=== PATIENT | female | born 1955 | race African-American/Black ===

== ENCOUNTER 2023-03-06 11:02 | Inpatient (IN) | payer MEDICARE, SELFPAY ==
[~2023-03-06 11:02] MED LIST: Iopamidol-370 76% 500 ML MDV (1 ML CHARGE) ONE
[2023-03-06] MEDS ORDERED: KETAMINE 100 MG/ML (5ML VIAL) ONE (11:21)
[2023-03-06] MEDS ORDERED: Ketamine 500 mg/500 ml in NS IVPB SCH (11:45)
[2023-03-06 11:47] LABS: ALV-art Gradient 222.025 mmHg (0-20); Actual Bicarbonate (HCO3a) 23.1 mEq/L (22-28); Analyzer IN Cardio ER; Base Excess (BEa) -0.7 mEq/L (-2.0 to +3.0); CO2 Tension 35.5 mmHg (35.0-45.0); Calcium, Ionized (arterial) 1.21 mmol/L (1.12-1.30); Carboxyhemoglobin (COHb) 0.3 gm% (0.0-3.0); Hematocrit-ABG 39 % (36.0-47.0); Hemoglobin (Hb) 13.1 g/dL (12.0-16.0); O2 Tension (PaO2), arterial 90.1 mmHg (> 80.0); Potassium - ABG Lab 4.43 mmol/L (3.70-5.30); Puncture Site RBA; pH, Arterial 7.431 (7.35-7.45)
[2023-03-06] MEDS ORDERED: NOREPINEPHRINE 8 MG/250 ML-D5W 250 ML ONE (11:55)
[2023-03-06] MEDS ORDERED: Piperacillin/Tazobactam 4.5 GM VIAL ONE (11:57)
[2023-03-06] MEDS ORDERED: Sodium Chloride 0.9% 100 ML ONE (11:58)
[2023-03-06] MEDS ORDERED: Acetaminophen 650 MG Suppository ONE (12:02)
[2023-03-06 12:10] LABS: #Monocytes 0.5 thou/uL (0.11-0.59); #Neutrophils 9.6 thou/uL (1.40-6.50); %Basophils 0.3 % (0.0-1.0); %Eosinophils 0.1 % (0.0-10.0); %Lymphocytes 13.4 % (21.0-51.0); %Monocytes 4.6 % (0.0-10.0); %Neutrophils 81.2 % (42.0-75.0); Hematocrit 41.2 % (36.0-47.0); Hemoglobin 12.6 g/dL (12.0-16.0); Mean Corpuscular HGB CONC 30.6 g/dL (32.0-36.0); Mean Corpuscular Hemoglobin 27.1 pg (27.0-31.0); Mean Corpuscular Volume 88.6 fl (78.0-98.0); Mean Platelet Volume 12.1 fL (7.4-10.4); Platelet Count 267 10x3/uL (130-400); RBC Distribution Width 17.6 % (11.5-14.5); Red Blood Cell (RBC) Count 4.65 mill/uL (4.20-5.40); White Blood Cell (WBC) Count 11.8 10x3/uL (4.8-10.8)
[2023-03-06 12:39] LABS: Bilirubin Negative (Negative); Blood, Urine Negative (Negative); CAUTI Indications for Culture Alt mental st,lethar; Glucose, Urine (Dipstick) 50 mg/dL (Negative); Ketone, Urine Trace mg/dL (Negative); Leukocyte 75 Leu/uL (Negative); Nitrite Negative (Negative); Protein, Urine (Dipstick) 70 mg/dL (Neg-Trace); Specific Gravity, Urine 1.026 (1.002-1.036); Squamous Epithelial 0-3 HPF (0-3); Urobilinogen Normal mg/dL (Less than 2)
[2023-03-06 12:40] LABS: ALT (SGPT) 86 U/L (8-55); AST (SGOT) 79 U/L (5-34); Albumin 3.8 g/dL (3.4-4.8); Alkaline Phosphatase 86 U/L (40-110); Anion Gap 23 mmol/L (10-20); BUN (Urea Nitrogen) 61 mg/dL (9.8-20.1); Bilirubin, Total 0.6 mg/dL (0.2-1.2); Calc. Creatinine Clearance 0 mL/min (70-130); Calcium 10.1 mg/dL (7.8-10.44); Carbon Dioxide 23 mmol/L (23-31); Chloride 101 mmol/L (98-107); Estimated GFR 19; Globulin 3.6 g/dL (2.4-3.5); Lipase 26 U/L (8-78); Magnesium 2.7 mg/dL (1.6-2.6); Potassium 4.7 mmol/L (3.5-5.1); Protein, Total 7.4 g/dL (5.8-8.1); Sodium 142 mmol/L (136-145)
[2023-03-06 12:49] LABS: Glucose 595 mg/dL (80-115); Troponin I 0.818 ng/mL (< 0.028)
[2023-03-06 12:55] LABS: RBC/HPF 0-3 HPF (0-3)
[2023-03-06 12:56] LABS: Bacteria/HPF Rare-Few HPF (None Seen); Clarity Cloudy (Clear)
[2023-03-06 12:57] LABS: Urine Culture Reflex No No
[2023-03-06] MEDS ORDERED: Vancomycin (BATCH) 2 GM/500 ML BAG ONE (13:01)
[2023-03-06] MEDS ORDERED: Insulin Regular 300 UNITS/3 ML VIAL ONE (13:12)
[2023-03-06] MEDS ORDERED: Dextrose 50% Abboject 50 ML SYRINGE SLOW IVP PRN ×2 (14:46)
[2023-03-06] MEDS ORDERED: NS 0.9% w/ 20 MEQ KCL 1,000 ML IV PRN ×2 (14:46)
[2023-03-06] MEDS ORDERED: D5 1/2 NS w/20 mEq KCL 1,000 ML IV PRN (14:46)
[2023-03-06] MEDS ORDERED: Electrolyte Replacement Protocol 1 EACH IVPB ONE ×2 (14:46)
[2023-03-06] MEDS ORDERED: Dextrose 5% in Water 1,000 ML IV PRN (14:46)
[2023-03-06] MEDS ORDERED: Ondansetron PF 4 MG/2 ML Vial IVP PRN (14:46)
[2023-03-06] MEDS ORDERED: Sodium Chloride 0.9% 1,000 ML IV PRN ×4 (14:46)
[2023-03-06] MEDS ORDERED: Glucagon 1 MG/ML KIT IM PRN (14:46)
[2023-03-06] MEDS ORDERED: Acetaminophen 650 MG Suppository PR PRN (14:46)
[2023-03-06] MEDS ORDERED: Dextrose 5 %-0.45 % NaCl 1,000 ML IV PRN (14:46)
[2023-03-06] MEDS ORDERED: HUMULIN R 100 UNITS in Sodium Chloride 0.9% 100 ML IVPB SCH (15:00)
[2023-03-06] MEDS ORDERED: Ventilator Sedation Protocol 1 EACH FS SCH (15:00)
[2023-03-06 15:55] LABS: Lactic Acid 3.4 mmol/L (0.5-2.2)
[2023-03-06 15:58] LABS: Anion Gap 17 mmol/L (10-20); BUN (Urea Nitrogen) 65 mg/dL (9.8-20.1); Calc. Creatinine Clearance 0 mL/min (70-130); Calcium 9.4 mg/dL (7.8-10.44); Carbon Dioxide 23 mmol/L (23-31); Chloride 106 mmol/L (98-107); Estimated GFR 18; Potassium 3.9 mmol/L (3.5-5.1); Sodium 142 mmol/L (136-145)
[2023-03-06] MEDS ORDERED: Morphine 2 MG/ML VIAL SLOW IVP PRN (16:00)
[2023-03-06] MEDS ORDERED: Propofol BOLUS 1,000 MG/100 ML VIAL IV PRN (16:00)
[2023-03-06] MEDS ORDERED: Fentanyl BOLUS 250 ML IVPB PRN (16:00)
[2023-03-06] MEDS ORDERED: Fentanyl CADD 100 ML IV SCH (16:00)
[2023-03-06] MEDS ORDERED: DISCONTINUE PREVIOUS NARCOTIC PAIN MEDICATIONS AND BENZODIAZEPINES FS SCH (16:00)
[2023-03-06 16:02] LABS: Glucose 446 mg/dL (80-115)
[2023-03-06] MEDS ORDERED: INSULIN REGULAR IN 0.9 % NACL 100 UNITS/100 ML BAG ONE (16:11)
[2023-03-06 16:13] LABS: Troponin I 1.306 ng/mL (< 0.028)
[2023-03-06] MEDS ORDERED: Vancomycin Dose by Levels Sliding Scale (Wt > 99) FS SCH (17:30)
[2023-03-06] MEDS ORDERED: Piperacillin/Tazobactam 4.5 GM in Sodium Chloride 0.9% 100 ML IVPB SCH (18:00)
[2023-03-06] MEDS: Heparin 5,000 UNITS/ML VIAL SC SCH ×2 (18:22→20:29)
[2023-03-06] MEDS: Piperacillin/Tazobactam 3.375 GM in Sodium Chloride 0.9% 100 ML IVPB SCH (18:23)
[2023-03-06] MEDS ORDERED: Lactated Ringer's 1,000 ML IV SCH (18:45)
[2023-03-06 18:58] LABS: Anion Gap 20 mmol/L (10-20); BUN (Urea Nitrogen) 63 mg/dL (9.8-20.1); Calc. Creatinine Clearance 44 mL/min (70-130); Calcium 9.1 mg/dL (7.8-10.44); Carbon Dioxide 22 mmol/L (23-31); Chloride 105 mmol/L (98-107); Estimated GFR 21; Potassium 3.6 mmol/L (3.5-5.1); Sodium 143 mmol/L (136-145)
[2023-03-06] MEDS ORDERED: Piperacillin/Tazobactam 3.375 GM in Sodium Chloride 0.9% 100 ML IVPB SCH (19:00)
[2023-03-06 19:02] LABS: Glucose 487 mg/dL (80-115); Troponin I 1.527 ng/mL (< 0.028)
[2023-03-06] MEDS ORDERED: Vancomycin 1.5 GM in Sodium Chloride 0.9% 250 ML 300 ML IVPB SCH (21:00)
[2023-03-06] MEDS: NOREPINEPHRINE 8 MG/250 ML-D5W 250 ML IVPB PRN (22:16)
[2023-03-06] MEDS: Propofol 1,000 MG/100 ML VIAL IV PRN (22:18)
[2023-03-06 23:59] LABS: Lactic Acid 3.2 mmol/L (0.5-2.2)
[2023-03-07 00:01] LABS: Anion Gap 14 mmol/L (10-20); BUN (Urea Nitrogen) 52 mg/dL (9.8-20.1); Calc. Creatinine Clearance 55 mL/min (70-130); Calcium 8.9 mg/dL (7.8-10.44); Carbon Dioxide 22 mmol/L (23-31); Chloride 113 mmol/L (98-107); Estimated GFR 28; Glucose 149 mg/dL (80-115); Potassium 3.2 mmol/L (3.5-5.1); Sodium 146 mmol/L (136-145)
[2023-03-07 00:18] LABS: Troponin I 1.815 ng/mL (< 0.028)
[2023-03-07] MEDS ORDERED: Heparin 10,000 UNITS/ 10 ML VIAL SLOW IVP SCH (00:30)
[2023-03-07] MEDS ORDERED: Heparin 25,000 units/D5W 500 ML IVPB SCH (00:30)
[2023-03-07 01:00] LABS: Hematocrit 35.6 % (36.0-47.0); Hemoglobin 11.2 g/dL (12.0-16.0); Platelet Count 212 10x3/uL (130-400)
[2023-03-07] MEDS ORDERED: Electrolyte Replacement Protocol FS PRN (01:45)
[2023-03-07] MEDS ORDERED: Insulin Glargine 30 UNITS/0.3 ML VIAL SC SCH ×2 (02:15→17:00)
[2023-03-07] MEDS: Piperacillin/Tazobactam 3.375 GM in Sodium Chloride 0.9% 100 ML IVPB SCH ×3 (02:31→17:45)
[2023-03-07] MEDS: Potassium Chloride 20 MEQ in Premix 1 BAG IVPB SCH ×2 (02:32→04:20)
[2023-03-07 04:57] LABS: Hematocrit 34.6 % (36.0-47.0); Hemoglobin 10.8 g/dL (12.0-16.0); Mean Corpuscular HGB CONC 31.2 g/dL (32.0-36.0); Mean Corpuscular Hemoglobin 27.4 pg (27.0-31.0); Mean Corpuscular Volume 87.8 fl (78.0-98.0); Mean Platelet Volume 12.2 fL (7.4-10.4); Platelet Count 183 10x3/uL (130-400); RBC Distribution Width 17.7 % (11.5-14.5); Red Blood Cell (RBC) Count 3.94 mill/uL (4.20-5.40); White Blood Cell (WBC) Count 14.2 10x3/uL (4.8-10.8)
[2023-03-07 05:13] LABS: Delete Auto Diff?? YES; Manual Diff?? YES
[2023-03-07 05:17] LABS: Anion Gap 15 mmol/L (10-20); BUN (Urea Nitrogen) 45 mg/dL (9.8-20.1); Calc. Creatinine Clearance 65 mL/min (70-130); Calcium 8.6 mg/dL (7.8-10.44); Carbon Dioxide 21 mmol/L (23-31); Chloride 112 mmol/L (98-107); Estimated GFR 32; Glucose 213 mg/dL (80-115); Potassium 3.8 mmol/L (3.5-5.1); Sodium 144 mmol/L (136-145)
[2023-03-07 05:44] LABS: Band 23 % (5-11); Lymphocytes 8 % (21-51); Metamyelocyte 2 % (0-0); Monocytes 6 % (0-10); Neutrophil 61 % (42-75); Total Cell Count 100
[2023-03-07 05:45] LABS: CellaVision Operator ID LAB.CLH1; Hypochromia SLIGHT = 6-15 cells HPF (0-5); Platelet Adequacy Comment Platelets Normal; Polychromasia SLIGHT = 2-3 cells HPF (0-2)
[2023-03-07] MEDS: NOREPINEPHRINE 8 MG/250 ML-D5W 250 ML IVPB PRN ×2 (05:50→17:45)
[2023-03-07] MEDS: Propofol 1,000 MG/100 ML VIAL IV PRN (05:53)
[2023-03-07 07:05] LABS: Actual Bicarbonate (HCO3v) 21.2 mEq/L (22-28); Base Excess -2.7 mEq/L (-2.0 to +3.0); Calcium, Ionized (venous) 1.21 mmol/L (1.16-1.32); Chloride (VBG) 109 mmol/L (98-106); Hematocrit-VBG 36 % (36.0-47.0); Hemoglobin (Hb) 12.3 g/dL (11.7-16.1); Potassium (VBG) 3.89 mmol/L (3.70-5.30); Sodium 144 mmol/L (133-146); pH (venous) 7.415 (7.32-7.43)
[2023-03-07 08:26] LABS: Anion Gap 16 mmol/L (10-20); BUN (Urea Nitrogen) 43 mg/dL (9.8-20.1); Calc. Creatinine Clearance 62 mL/min (70-130); Calcium 8.6 mg/dL (7.8-10.44); Carbon Dioxide 21 mmol/L (23-31); Chloride 111 mmol/L (98-107); Estimated GFR 31; Glucose 251 mg/dL (80-115); Sodium 144 mmol/L (136-145)
[2023-03-07] MEDS: HumaLOG 300 UNITS/3 ML VIAL SC PRN ×4 (08:27→20:22)
[2023-03-07] MEDS: Pantoprazole 40 MG VIAL IVP SCH (09:23)
[2023-03-07] MEDS ORDERED: Acetaminophen 325 MG TAB PO PRN (09:54)
[2023-03-07] MEDS ORDERED: Acetaminophen 325 MG TAB PER TUBE PRN (09:59)
[2023-03-07] MEDS: Sodium Chloride 0.9% 1,000 ML IV SCH ×2 (10:36→20:15)
[2023-03-07] MEDS ORDERED: Acetaminophen 650 MG/20.3 ML UDCUP PER TUBE PRN (11:45)
[2023-03-07] MEDS: Heparin 5,000 UNITS/ML VIAL SC SCH (11:49)
[2023-03-07 13:31] LABS: Lactic Acid 2.4 mmol/L (0.5-2.2)
[2023-03-07 13:34] LABS: Vancomycin, Random 12.8 ug/mL (See Comment)
[2023-03-07] MEDS ORDERED: Vancomycin (BATCH) 1.25 GM in Premix 1 BAG IVPB SCH (14:00)
[2023-03-08] MEDS: HumaLOG 300 UNITS/3 ML VIAL SC PRN ×6 (00:16→21:14)
[2023-03-08] MEDS: Piperacillin/Tazobactam 3.375 GM in Sodium Chloride 0.9% 100 ML IVPB SCH ×3 (01:33→17:58)
[2023-03-08] MEDS: Sodium Chloride 0.9% 1,000 ML IV SCH ×2 (04:18→16:38)
[2023-03-08 04:24] LABS: Hematocrit 30.1 % (36.0-47.0); Hemoglobin 9.3 g/dL (12.0-16.0); Mean Corpuscular HGB CONC 30.9 g/dL (32.0-36.0); Mean Corpuscular Hemoglobin 27.1 pg (27.0-31.0); Mean Corpuscular Volume 87.8 fl (78.0-98.0); Platelet Count 144 10x3/uL (130-400); RBC Distribution Width 18.5 % (11.5-14.5); Red Blood Cell (RBC) Count 3.43 mill/uL (4.20-5.40); White Blood Cell (WBC) Count 15.6 10x3/uL (4.8-10.8)
[2023-03-08 04:52] LABS: Lactic Acid 1.6 mmol/L (0.5-2.2)
[2023-03-08 04:58] LABS: ALT (SGPT) 46 U/L (8-55); AST (SGOT) 25 U/L (5-34); Albumin 2.8 g/dL (3.4-4.8); Alkaline Phosphatase 61 U/L (40-110); Anion Gap 14 mmol/L (10-20); BUN (Urea Nitrogen) 35 mg/dL (9.8-20.1); Bilirubin, Total 0.7 mg/dL (0.2-1.2); Calc. Creatinine Clearance 78 mL/min (70-130); Calcium 8.6 mg/dL (7.8-10.44); Carbon Dioxide 21 mmol/L (23-31); Chloride 112 mmol/L (98-107); Estimated GFR 40; Glucose 376 mg/dL (80-115); Potassium 3.4 mmol/L (3.5-5.1); Protein, Total 5.8 g/dL (5.8-8.1); Sodium 144 mmol/L (136-145)
[2023-03-08 05:21] LABS: Delete Auto Diff?? YES; Manual Diff?? YES
[2023-03-08 07:21] LABS: Actual Bicarbonate (HCO3a) 21.1 mEq/L (22-28); Base Excess (BEa) -2.3 mEq/L (-2.0 to +3.0); CO2 Tension 31.4 mmHg (35.0-45.0); Calcium, Ionized (arterial) 1.24 mmol/L (1.12-1.30); Carboxyhemoglobin (COHb) 0.3 gm% (0.0-3.0); Hematocrit-ABG 30 % (36.0-47.0); Hemoglobin (Hb) 10.1 g/dL (12.0-16.0); O2 Tension (PaO2), arterial 99.9 mmHg (> 80.0); Potassium - ABG Lab 3.36 mmol/L (3.70-5.30); pH, Arterial 7.446 (7.35-7.45)
[2023-03-08 07:35] LABS: Puncture Site RRA
[2023-03-08 07:58] LABS: Band 13 % (5-11); Burr Cells SLIGHT = 2-5 cells HPF (0-1); CellaVision Operator ID LAB.GE; Giant Platelets 1.9 % (0-5); Large Platelets 0.9 % (0-5); Lymphocytes 11 % (21-51); Monocytes 2 % (0-10); Neutrophil 70 % (42-75); Platelet Adequacy Comment Platelets Normal; Poikilocytosis MODERATE=16-30 cells HPF (0-5); Polychromasia SLIGHT = 2-3 cells HPF (0-2); Reactive Lymphocytes 2 % (0-10); Total Cell Count 106
[2023-03-08] MEDS: Potassium Chloride 20 MEQ in Premix 1 BAG IVPB SCH ×4 (08:28→23:05)
[2023-03-08] MEDS: Insulin Glargine 30 UNITS/0.3 ML VIAL SC SCH (08:31)
[2023-03-08] MEDS: Pantoprazole 40 MG VIAL IVP SCH (08:31)
[2023-03-08] MEDS ORDERED: Clopidogrel Bisulfate 75 MG TAB PER TUBE SCH (09:00)
[2023-03-08] MEDS ORDERED: Aspirin Chewable 81 MG TAB PER TUBE SCH (09:00)
[2023-03-08] MEDS ORDERED: Insulin Glargine 30 UNITS/0.3 ML VIAL SC SCH ×2 (09:00)
[2023-03-08 13:11] LABS: Vancomycin, Random 10.6 ug/mL (See Comment)
[2023-03-08] MEDS: Vancomycin HCl 750 MG in Sodium Chloride 0.9% 250 ML 250 ML IVPB SCH (16:41)
[2023-03-08 16:50] LABS: Potassium 3.3 mmol/L (3.5-5.1)
[2023-03-08] MEDS: Propofol 1,000 MG/100 ML VIAL IV PRN (22:29)
[2023-03-09] MEDS: HumaLOG 300 UNITS/3 ML VIAL SC PRN ×5 (00:20→20:20)
[2023-03-09] MEDS: Piperacillin/Tazobactam 3.375 GM in Sodium Chloride 0.9% 100 ML IVPB SCH ×3 (02:25→17:51)
[2023-03-09] MEDS: Sodium Chloride 0.9% 1,000 ML IV SCH (02:25)
[2023-03-09] MEDS: Vancomycin HCl 750 MG in Sodium Chloride 0.9% 250 ML 250 ML IVPB SCH (04:07)
[2023-03-09 04:41] LABS: Hematocrit 25.4 % (36.0-47.0); Hemoglobin 7.8 g/dL (12.0-16.0); Mean Corpuscular HGB CONC 30.7 g/dL (32.0-36.0); Mean Corpuscular Hemoglobin 27.1 pg (27.0-31.0); Mean Corpuscular Volume 88.2 fl (78.0-98.0); Mean Platelet Volume 12.3 fL (7.4-10.4); Platelet Count 134 10x3/uL (130-400); RBC Distribution Width 18.4 % (11.5-14.5); Red Blood Cell (RBC) Count 2.88 mill/uL (4.20-5.40); White Blood Cell (WBC) Count 10.8 10x3/uL (4.8-10.8)
[2023-03-09 04:48] LABS: Delete Auto Diff?? YES; Manual Diff?? YES
[2023-03-09 05:07] LABS: ALT (SGPT) 37 U/L (8-55); AST (SGOT) 25 U/L (5-34); Albumin 2.6 g/dL (3.4-4.8); Alkaline Phosphatase 52 U/L (40-110); Anion Gap 11 mmol/L (10-20); BUN (Urea Nitrogen) 22 mg/dL (9.8-20.1); Bilirubin, Total 0.4 mg/dL (0.2-1.2); Calc. Creatinine Clearance 119 mL/min (70-130); Calcium 8.5 mg/dL (7.8-10.44); Carbon Dioxide 21 mmol/L (23-31); Chloride 118 mmol/L (98-107); Estimated GFR 67; Globulin 2.7 g/dL (2.4-3.5); Glucose 220 mg/dL (80-115); Potassium 3.3 mmol/L (3.5-5.1); Protein, Total 5.3 g/dL (5.8-8.1); Sodium 147 mmol/L (136-145)
[2023-03-09 05:14] LABS: Band 3 % (5-11); CellaVision Operator ID lab.abc; Eosinophils 1 % (0-10); Lymphocytes 7 % (21-51); Monocytes 1 % (0-10); Neutrophil 88 % (42-75); Nucleated RBC (Manual Ct) 1 % (0); Platelet Adequacy Comment Platelets Normal; RBC Morphology Within Normal Limits; Smudge Cells 14.9 %; Total Cell Count 101
[2023-03-09 06:41] LABS: INR-International Normal Ratio 1.2; PTT 36.7 sec (22.9-36.1); Prothrombin Time 16.1 sec (12.0-14.7)
[2023-03-09 07:30] LABS: Actual Bicarbonate (HCO3a) 18.2 mEq/L (22-28); Base Excess (BEa) -5.4 mEq/L (-2.0 to +3.0); CO2 Tension 29.2 mmHg (35.0-45.0); Calcium, Ionized (arterial) 1.26 mmol/L (1.12-1.30); Carboxyhemoglobin (COHb) 0.3 gm% (0.0-3.0); Hematocrit-ABG 31 % (36.0-47.0); Hemoglobin (Hb) 10.4 g/dL (12.0-16.0); O2 Tension (PaO2), arterial 94.1 mmHg (> 80.0); Potassium - ABG Lab 3.37 mmol/L (3.70-5.30); pH, Arterial 7.413 (7.35-7.45)
[2023-03-09 07:57] LABS: Puncture Site RBA
[2023-03-09] MEDS ORDERED: Potassium Bicarbonate/Cit Ac 20 MEQ TAB PER TUBE SCH (08:00)
[2023-03-09] MEDS: Pantoprazole 40 MG VIAL IVP SCH (09:06)
[2023-03-09] MEDS: Insulin Glargine 30 UNITS/0.3 ML VIAL SC SCH (09:06)
[2023-03-09] MEDS ORDERED: Furosemide 20 MG/2 ML VIAL SLOW IVP SCH (12:15)
[2023-03-09 13:36] LABS: Potassium 3.6 mmol/L (3.5-5.1)
[2023-03-09] MEDS: Dexmedetomidine 400 MCG, Admixture Fee 1 EACH in Sodium Chloride 0.9% 96 ML IVPB SCH ×2 (15:35→20:22)
[2023-03-09 16:40] LABS: Hematocrit 25.2 % (36.0-47.0); Hemoglobin 8.1 g/dL (12.0-16.0); Platelet Count 131 10x3/uL (130-400)
[2023-03-09] MEDS: Vancomycin 1 GM in Premix 1 BAG IVPB SCH (16:42)
[2023-03-09] MEDS: Lorazepam 2 MG/ML VIAL SLOW IVP PRN ×2 (17:19→23:20)
[2023-03-10] MEDS: HumaLOG 300 UNITS/3 ML VIAL SC PRN ×5 (02:02→20:23)
[2023-03-10] MEDS: Piperacillin/Tazobactam 3.375 GM in Sodium Chloride 0.9% 100 ML IVPB SCH ×3 (02:02→18:22)
[2023-03-10] MEDS ORDERED: Sodium Chloride 0.9% 500 ML IVPB SCH (02:30)
[2023-03-10] MEDS: Dexmedetomidine 400 MCG, Admixture Fee 1 EACH in Sodium Chloride 0.9% 96 ML IVPB SCH (02:49)
[2023-03-10] MEDS: Vancomycin 1 GM in Premix 1 BAG IVPB SCH ×2 (04:14→16:39)
[2023-03-10] MEDS: Lorazepam 2 MG/ML VIAL SLOW IVP PRN (04:27)
[2023-03-10 07:18] LABS: Actual Bicarbonate (HCO3a) 19.9 mEq/L (22-28); Base Excess (BEa) -4.6 mEq/L (-2.0 to +3.0); CO2 Tension 34.3 mmHg (35.0-45.0); Carboxyhemoglobin (COHb) 0.3 gm% (0.0-3.0); Hematocrit-ABG 29 % (36.0-47.0); O2 Tension (PaO2), arterial 114.8 mmHg (> 80.0); Potassium - ABG Lab 3.61 mmol/L (3.70-5.30); pH, Arterial 7.381 (7.35-7.45)
[2023-03-10 07:36] LABS: ALV-art Gradient 127.525 mmHg (0-20); Puncture Site RBA
[2023-03-10 07:58] LABS: ALT (SGPT) 40 U/L (8-55); AST (SGOT) 30 U/L (5-34); Albumin 2.7 g/dL (3.4-4.8); Alkaline Phosphatase 58 U/L (40-110); Anion Gap 13 mmol/L (10-20); BUN (Urea Nitrogen) 19 mg/dL (9.8-20.1); Bilirubin, Total 0.4 mg/dL (0.2-1.2); Calc. Creatinine Clearance 132 mL/min (70-130); Calcium 8.7 mg/dL (7.8-10.44); Carbon Dioxide 19 mmol/L (23-31); Chloride 116 mmol/L (98-107); Estimated GFR 74; Globulin 3.1 g/dL (2.4-3.5); Glucose 263 mg/dL (80-115); Protein, Total 5.8 g/dL (5.8-8.1); Sodium 144 mmol/L (136-145)
[2023-03-10 09:12] LABS: #Eosinphils 0.3 thou/uL (0.0-0.7); #Monocytes 0.4 thou/uL (0.11-0.59); #Neutrophils 6.2 thou/uL (1.40-6.50); %Basophils 0.3 % (0.0-1.0); %Eosinophils 3.3 % (0.0-10.0); %Lymphocytes 23.1 % (21.0-51.0); %Monocytes 4.3 % (0.0-10.0); %Neutrophils 68.1 % (42.0-75.0); Hematocrit 31.4 % (36.0-47.0); Hemoglobin 9.3 g/dL (12.0-16.0); Mean Corpuscular HGB CONC 29.6 g/dL (32.0-36.0); Mean Corpuscular Hemoglobin 27.6 pg (27.0-31.0); Mean Corpuscular Volume 93.2 fl (78.0-98.0); Mean Platelet Volume 12.9 fL (7.4-10.4); Platelet Count 135 10x3/uL (130-400); RBC Distribution Width 18.7 % (11.5-14.5); Red Blood Cell (RBC) Count 3.37 mill/uL (4.20-5.40); White Blood Cell (WBC) Count 9.1 10x3/uL (4.8-10.8)
[2023-03-10 10:02] LABS: Ovalocytes SLIGHT = 2-5 cells (100X) (0-1/hpf)
[2023-03-10 10:03] LABS: Platelet Adequacy Comment PLT clumps seen-ADEQ
[2023-03-10] MEDS: Pantoprazole 40 MG VIAL IVP SCH (10:05)
[2023-03-10] MEDS: Insulin Glargine 30 UNITS/0.3 ML VIAL SC SCH (10:06)
[2023-03-10] MEDS: Furosemide 20 MG/2 ML VIAL SLOW IVP SCH (10:06)
[2023-03-10] MEDS: Scopolamine 1 mg/72 hour Patch TOP SCH (12:16)
[2023-03-10] MEDS ORDERED: Racepinephrine 2.25% 0.5 ML NEB NEB SCH (12:30)
[2023-03-11] MEDS: HumaLOG 300 UNITS/3 ML VIAL SC PRN ×4 (00:08→20:05)
[2023-03-11] MEDS: Piperacillin/Tazobactam 3.375 GM in Sodium Chloride 0.9% 100 ML IVPB SCH ×3 (02:05→17:07)
[2023-03-11 03:43] LABS: Hematocrit 26.5 % (36.0-47.0); Hemoglobin 8.4 g/dL (12.0-16.0); Mean Corpuscular HGB CONC 31.7 g/dL (32.0-36.0); Mean Corpuscular Hemoglobin 27.9 pg (27.0-31.0); Mean Platelet Volume 11.8 fL (7.4-10.4); Platelet Count 192 10x3/uL (130-400); RBC Distribution Width 18.4 % (11.5-14.5); Red Blood Cell (RBC) Count 3.01 mill/uL (4.20-5.40); White Blood Cell (WBC) Count 10.8 10x3/uL (4.8-10.8)
[2023-03-11 03:49] LABS: Delete Auto Diff?? YES; Manual Diff?? YES
[2023-03-11 04:14] LABS: Anisocytosis SLIGHT = 6-15 cells HPF (0-5); CellaVision Operator ID lab.abc; Eosinophils 1 % (0-10); Lymphocytes 28 % (21-51); Monocytes 5 % (0-10); Neutrophil 63 % (42-75); Platelet Adequacy Comment Platelets Normal; Polychromasia SLIGHT = 2-3 cells HPF (0-2); Reactive Lymphocytes 3 % (0-10); Smudge Cells 9.9 %; Total Cell Count 101
[2023-03-11] MEDS: Vancomycin 1 GM in Premix 1 BAG IVPB SCH ×2 (04:50→16:45)
[2023-03-11] MEDS: Labetalol HCl 100 MG/20 ML VIAL SLOW IVP PRN ×3 (05:30→23:13)
[2023-03-11 06:15] LABS: ALT (SGPT) 49 U/L (8-55); AST (SGOT) 33 U/L (5-34); Albumin 2.9 g/dL (3.4-4.8); Alkaline Phosphatase 62 U/L (40-110); Anion Gap 15 mmol/L (10-20); BUN (Urea Nitrogen) 21 mg/dL (9.8-20.1); Bilirubin, Total 0.4 mg/dL (0.2-1.2); Calc. Creatinine Clearance 139 mL/min (70-130); Carbon Dioxide 20 mmol/L (23-31); Chloride 113 mmol/L (98-107); Estimated GFR 80; Globulin 3.2 g/dL (2.4-3.5); Glucose 201 mg/dL (80-115); Potassium 3.5 mmol/L (3.5-5.1); Protein, Total 6.1 g/dL (5.8-8.1); Sodium 144 mmol/L (136-145)
[2023-03-11] MEDS ORDERED: HumaLOG 300 UNITS/3 ML VIAL SC PRN (07:08)
[2023-03-11 08:28] LABS: Actual Bicarbonate (HCO3a) 23.7 mEq/L (22-28); Base Excess (BEa) -0.4 mEq/L (-2.0 to +3.0); CO2 Tension 36.6 mmHg (35.0-45.0); Calcium, Ionized (arterial) 1.28 mmol/L (1.12-1.30); Carboxyhemoglobin (COHb) 0.3 gm% (0.0-3.0); Hematocrit-ABG 26 % (36.0-47.0); Hemoglobin (Hb) 8.7 g/dL (12.0-16.0); O2 Tension (PaO2), arterial 96.6 mmHg (> 80.0); Potassium - ABG Lab 3.22 mmol/L (3.70-5.30)
[2023-03-11 08:29] LABS: Puncture Site RRA
[2023-03-11] MEDS ORDERED: Potassium Bicarbonate/Cit Ac 20 MEQ TAB PER TUBE SCH (09:00)
[2023-03-11] MEDS: Furosemide 20 MG/2 ML VIAL SLOW IVP SCH (09:51)
[2023-03-11] MEDS: Insulin Glargine 30 UNITS/0.3 ML VIAL SC SCH (09:51)
[2023-03-11] MEDS: Losartan 25 MG TAB PER TUBE SCH (09:51)
[2023-03-11] MEDS: Pantoprazole 40 MG VIAL IVP SCH (10:01)
[2023-03-11] MEDS ORDERED: Enalaprilat Dihydrate 1.25 MG/ML VIAL SLOW IVP SCH ×2 (12:41→18:00)
[2023-03-11] MEDS: Enalaprilat Dihydrate 1.25 MG/ML VIAL SLOW IVP SCH ×2 (13:22→18:29)
[2023-03-11] MEDS ORDERED: Metoprolol Tartrate 50 MG TAB PER TUBE SCH (21:00)
[2023-03-12] MEDS: Enalaprilat Dihydrate 1.25 MG/ML VIAL SLOW IVP SCH ×5 (00:17→23:00)
[2023-03-12] MEDS: HumaLOG 300 UNITS/3 ML VIAL SC PRN ×4 (00:19→16:09)
[2023-03-12] MEDS: Piperacillin/Tazobactam 3.375 GM in Sodium Chloride 0.9% 100 ML IVPB SCH ×2 (01:00→09:04)
[2023-03-12 06:35] LABS: #Eosinphils 0.3 thou/uL (0.0-0.7); #Monocytes 0.6 thou/uL (0.11-0.59); #Neutrophils 5.5 thou/uL (1.40-6.50); %Basophils 0.2 % (0.0-1.0); %Eosinophils 2.8 % (0.0-10.0); %Lymphocytes 30.6 % (21.0-51.0); %Monocytes 6.2 % (0.0-10.0); %Neutrophils 58.7 % (42.0-75.0); Hematocrit 26.2 % (36.0-47.0); Hemoglobin 8.6 g/dL (12.0-16.0); Mean Corpuscular HGB CONC 32.8 g/dL (32.0-36.0); Mean Corpuscular Hemoglobin 29.2 pg (27.0-31.0); Mean Corpuscular Volume 88.8 fl (78.0-98.0); Mean Platelet Volume 11.6 fL (7.4-10.4); Platelet Count 275 10x3/uL (130-400); RBC Distribution Width 18.7 % (11.5-14.5); Red Blood Cell (RBC) Count 2.95 mill/uL (4.20-5.40); White Blood Cell (WBC) Count 9.4 10x3/uL (4.8-10.8)
[2023-03-12 06:37] LABS: Anion Gap 12 mmol/L (10-20); BUN (Urea Nitrogen) 17 mg/dL (9.8-20.1); Calc. Creatinine Clearance 146 mL/min (70-130); Calcium 9.2 mg/dL (7.8-10.44); Carbon Dioxide 26 mmol/L (23-31); Chloride 107 mmol/L (98-107); Estimated GFR 86; Glucose 170 mg/dL (80-115); Potassium 3.7 mmol/L (3.5-5.1); Sodium 141 mmol/L (136-145)
[2023-03-12] MEDS ORDERED: Carvedilol 3.125 MG TAB PO SCH (08:15)
[2023-03-12 08:23] LABS: Hemoglobin A1c 8.7 % (4.0-6.0)
[2023-03-12] MEDS: Furosemide 40 MG TAB PER TUBE SCH (08:45)
[2023-03-12] MEDS: Amlodipine 10 MG TAB PER TUBE SCH (08:45)
[2023-03-12] MEDS: Losartan 25 MG TAB PER TUBE SCH (08:45)
[2023-03-12] MEDS: Insulin Glargine 30 UNITS/0.3 ML VIAL SC SCH (08:45)
[2023-03-12] MEDS: Lansoprazole 15 MG/5 ML (BATCHED)UDCUP PER TUBE SCH (09:15)
[2023-03-12] MEDS: hydrALAZINE 10 MG TAB PO SCH ×3 (12:05→20:09)
[2023-03-12] MEDS: Carvedilol 6.25 MG TAB PO SCH (16:10)
[2023-03-12] MEDS: Amoxicillin/Potassium Clav 875 MG TAB PO SCH (20:09)
[2023-03-13] MEDS: Enalaprilat Dihydrate 1.25 MG/ML VIAL SLOW IVP SCH ×4 (04:58→21:33)
[2023-03-13] MEDS: HumaLOG 300 UNITS/3 ML VIAL SC PRN ×2 (05:04→12:40)
[2023-03-13 05:26] LABS: #Eosinphils 0.3 thou/uL (0.0-0.7); #Monocytes 0.7 thou/uL (0.11-0.59); #Neutrophils 4.9 thou/uL (1.40-6.50); %Basophils 0.1 % (0.0-1.0); %Eosinophils 3.2 % (0.0-10.0); %Lymphocytes 34.6 % (21.0-51.0); %Monocytes 7.2 % (0.0-10.0); %Neutrophils 52.8 % (42.0-75.0); Hematocrit 26.3 % (36.0-47.0); Hemoglobin 8.1 g/dL (12.0-16.0); Mean Corpuscular HGB CONC 30.8 g/dL (32.0-36.0); Mean Corpuscular Hemoglobin 27.6 pg (27.0-31.0); Mean Corpuscular Volume 89.5 fl (78.0-98.0); Mean Platelet Volume 11.4 fL (7.4-10.4); Platelet Count 275 10x3/uL (130-400); RBC Distribution Width 18.3 % (11.5-14.5); Red Blood Cell (RBC) Count 2.94 mill/uL (4.20-5.40); White Blood Cell (WBC) Count 9.2 10x3/uL (4.8-10.8)
[2023-03-13 05:55] LABS: Anion Gap 11 mmol/L (10-20); BUN (Urea Nitrogen) 18 mg/dL (9.8-20.1); Calc. Creatinine Clearance 147 mL/min (70-130); Calcium 9.3 mg/dL (7.8-10.44); Carbon Dioxide 28 mmol/L (23-31); Chloride 103 mmol/L (98-107); Estimated GFR 87; Glucose 206 mg/dL (80-115); Potassium 3.8 mmol/L (3.5-5.1); Sodium 138 mmol/L (136-145)
[2023-03-13] MEDS: Furosemide 40 MG TAB PER TUBE SCH (08:09)
[2023-03-13] MEDS: Carvedilol 6.25 MG TAB PO SCH ×2 (08:09→16:18)
[2023-03-13] MEDS: metFORMIN 500 MG TAB PER TUBE SCH ×2 (08:09→16:18)
[2023-03-13] MEDS: Amoxicillin/Potassium Clav 875 MG TAB PO SCH ×2 (08:10→21:33)
[2023-03-13] MEDS: Losartan 25 MG TAB PER TUBE SCH (08:10)
[2023-03-13] MEDS: Amlodipine 10 MG TAB PER TUBE SCH (08:10)
[2023-03-13] MEDS: hydrALAZINE 25 MG TAB PER TUBE SCH ×4 (08:10→21:32)
[2023-03-13] MEDS: Lansoprazole 15 MG/5 ML (BATCHED)UDCUP PER TUBE SCH (08:10)
[2023-03-13] MEDS: Insulin Glargine 30 UNITS/0.3 ML VIAL SC SCH (08:11)
[2023-03-13] MEDS: Scopolamine 1 mg/72 hour Patch TOP SCH (10:48)
[2023-03-14] MEDS: Enalaprilat Dihydrate 1.25 MG/ML VIAL SLOW IVP SCH ×4 (04:38→23:44)
[2023-03-14] MEDS: Losartan 25 MG TAB PER TUBE SCH (08:05)
[2023-03-14] MEDS: hydrALAZINE 25 MG TAB PER TUBE SCH ×4 (08:06→20:07)
[2023-03-14] MEDS: Carvedilol 6.25 MG TAB PER TUBE SCH ×2 (08:07→16:35)
[2023-03-14] MEDS: Amlodipine 10 MG TAB PER TUBE SCH (08:07)
[2023-03-14] MEDS: metFORMIN 500 MG TAB PER TUBE SCH ×2 (08:07→16:36)
[2023-03-14] MEDS: Furosemide 40 MG TAB PER TUBE SCH (08:07)
[2023-03-14] MEDS: Amoxicillin/Potassium Clav 875 MG TAB PO SCH ×2 (08:07→20:07)
[2023-03-14] MEDS: Lansoprazole 15 MG/5 ML (BATCHED)UDCUP PER TUBE SCH (08:08)
[2023-03-14] MEDS: Insulin Glargine 30 UNITS/0.3 ML VIAL SC SCH ×2 (08:09→09:00)
[2023-03-14 08:56] LABS: Anion Gap 12 mmol/L (10-20); BUN (Urea Nitrogen) 18 mg/dL (9.8-20.1); Calc. Creatinine Clearance 146 mL/min (70-130); Carbon Dioxide 25 mmol/L (23-31); Chloride 104 mmol/L (98-107); Estimated GFR 89; Glucose 91 mg/dL (80-115); Potassium 3.4 mmol/L (3.5-5.1); Sodium 138 mmol/L (136-145)
[2023-03-14] MEDS ORDERED: Insulin Glargine 30 UNITS/0.3 ML VIAL SC SCH (09:00)
[2023-03-14 09:03] LABS: #Eosinphils 0.2 thou/uL (0.0-0.7); #Monocytes 0.7 thou/uL (0.11-0.59); #Neutrophils 5.4 thou/uL (1.40-6.50); %Basophils 0.2 % (0.0-1.0); %Eosinophils 2.6 % (0.0-10.0); %Lymphocytes 29.8 % (21.0-51.0); %Monocytes 7.2 % (0.0-10.0); %Neutrophils 58.2 % (42.0-75.0); Hemoglobin 9.6 g/dL (12.0-16.0); Mean Corpuscular Hemoglobin 27.5 pg (27.0-31.0); Mean Corpuscular Volume 88.8 fl (78.0-98.0); Mean Platelet Volume 11.7 fL (7.4-10.4); Platelet Count 294 10x3/uL (130-400); RBC Distribution Width 18.7 % (11.5-14.5); Red Blood Cell (RBC) Count 3.49 mill/uL (4.20-5.40); White Blood Cell (WBC) Count 9.2 10x3/uL (4.8-10.8)
[2023-03-14] MEDS: Potassium Chloride 20 MEQ in Premix 1 BAG IVPB SCH (10:41)
[2023-03-14 20:42] LABS: Potassium 4.2 mmol/L (3.5-5.1)
[2023-03-15 04:24] LABS: #Eosinphils 0.2 thou/uL (0.0-0.7); #Monocytes 0.6 thou/uL (0.11-0.59); #Neutrophils 5.5 thou/uL (1.40-6.50); %Basophils 0.2 % (0.0-1.0); %Eosinophils 1.9 % (0.0-10.0); %Lymphocytes 29.8 % (21.0-51.0); %Monocytes 6.2 % (0.0-10.0); %Neutrophils 60.8 % (42.0-75.0); Hematocrit 27.6 % (36.0-47.0); Hemoglobin 8.4 g/dL (12.0-16.0); Mean Corpuscular HGB CONC 30.4 g/dL (32.0-36.0); Mean Corpuscular Hemoglobin 27.5 pg (27.0-31.0); Mean Corpuscular Volume 90.5 fl (78.0-98.0); Platelet Count 347 10x3/uL (130-400); RBC Distribution Width 18.8 % (11.5-14.5); Red Blood Cell (RBC) Count 3.05 mill/uL (4.20-5.40)
[2023-03-15 04:44] LABS: Anion Gap 14 mmol/L (10-20); BUN (Urea Nitrogen) 20 mg/dL (9.8-20.1); Calc. Creatinine Clearance 132 mL/min (70-130); Calcium 9.6 mg/dL (7.8-10.44); Carbon Dioxide 22 mmol/L (23-31); Chloride 104 mmol/L (98-107); Estimated GFR 77; Glucose 147 mg/dL (80-115); Sodium 136 mmol/L (136-145)
[2023-03-15] MEDS: Enalaprilat Dihydrate 1.25 MG/ML VIAL SLOW IVP SCH ×4 (05:28→23:17)
[2023-03-15] MEDS: Furosemide 40 MG TAB PER TUBE SCH (07:24)
[2023-03-15] MEDS: Carvedilol 6.25 MG TAB PER TUBE SCH ×2 (07:24→17:53)
[2023-03-15] MEDS: Amlodipine 10 MG TAB PER TUBE SCH (07:25)
[2023-03-15] MEDS: metFORMIN 500 MG TAB PER TUBE SCH ×2 (07:25→17:54)
[2023-03-15] MEDS: Amoxicillin/Potassium Clav 875 MG TAB PO SCH ×2 (07:25→20:00)
[2023-03-15] MEDS: Losartan 25 MG TAB PER TUBE SCH (07:25)
[2023-03-15] MEDS: Lansoprazole 15 MG/5 ML (BATCHED)UDCUP PER TUBE SCH (07:25)
[2023-03-15] MEDS: Insulin Glargine 30 UNITS/0.3 ML VIAL SC SCH (07:26)
[2023-03-15] MEDS: hydrALAZINE 25 MG TAB PER TUBE SCH ×4 (07:28→20:08)
[2023-03-15 08:33] VITALS: BMI 45.1
[2023-03-16] MEDS: Enalaprilat Dihydrate 1.25 MG/ML VIAL SLOW IVP SCH (04:09)
[2023-03-16 04:15] LABS: #Eosinphils 0.2 thou/uL (0.0-0.7); #Monocytes 0.5 thou/uL (0.11-0.59); #Neutrophils 5.5 thou/uL (1.40-6.50); %Basophils 0.1 % (0.0-1.0); %Lymphocytes 28.3 % (21.0-51.0); %Monocytes 6.1 % (0.0-10.0); %Neutrophils 62.7 % (42.0-75.0); Hematocrit 26.9 % (36.0-47.0); Hemoglobin 8.3 g/dL (12.0-16.0); Mean Corpuscular HGB CONC 30.9 g/dL (32.0-36.0); Mean Corpuscular Hemoglobin 27.9 pg (27.0-31.0); Mean Corpuscular Volume 90.3 fl (78.0-98.0); Mean Platelet Volume 10.5 fL (7.4-10.4); Platelet Count 337 10x3/uL (130-400); RBC Distribution Width 18.8 % (11.5-14.5); Red Blood Cell (RBC) Count 2.98 mill/uL (4.20-5.40); White Blood Cell (WBC) Count 8.7 10x3/uL (4.8-10.8)
[2023-03-16 04:52] LABS: Anion Gap 14 mmol/L (10-20); BUN (Urea Nitrogen) 20 mg/dL (9.8-20.1); Calc. Creatinine Clearance 120 mL/min (70-130); Calcium 9.9 mg/dL (7.8-10.44); Carbon Dioxide 22 mmol/L (23-31); Chloride 103 mmol/L (98-107); Estimated GFR 70; Glucose 144 mg/dL (80-115); Sodium 135 mmol/L (136-145)
[2023-03-16] MEDS: HumaLOG 300 UNITS/3 ML VIAL SC PRN ×2 (08:24→20:50)
[2023-03-16] MEDS: Furosemide 40 MG TAB PER TUBE SCH (08:28)
[2023-03-16] MEDS: Amlodipine 10 MG TAB PER TUBE SCH (08:28)
[2023-03-16] MEDS: Carvedilol 6.25 MG TAB PER TUBE SCH (08:28)
[2023-03-16] MEDS: Losartan 25 MG TAB PER TUBE SCH (08:28)
[2023-03-16] MEDS: metFORMIN 500 MG TAB PER TUBE SCH ×2 (08:28→16:00)
[2023-03-16] MEDS: hydrALAZINE 25 MG TAB PER TUBE SCH ×4 (08:28→20:49)
[2023-03-16] MEDS: Insulin Glargine 30 UNITS/0.3 ML VIAL SC SCH (08:30)
[2023-03-16] MEDS: Scopolamine 1 mg/72 hour Patch TOP SCH (10:29)
[2023-03-16] MEDS: Lansoprazole 15 MG/5 ML (BATCHED)UDCUP PER TUBE SCH (10:29)
[2023-03-16] MEDS: Carvedilol 25 MG TAB PO SCH (16:00)
[2023-03-16] MEDS: Atorvastatin Calcium 40 MG TAB PO SCH (20:49)
[2023-03-17] MEDS: Labetalol HCl 100 MG/20 ML VIAL SLOW IVP PRN (06:22)
[2023-03-17] MEDS: HumaLOG 300 UNITS/3 ML VIAL SC PRN ×3 (06:23→18:12)
[2023-03-17] MEDS: metFORMIN 500 MG TAB PER TUBE SCH ×2 (07:41→16:31)
[2023-03-17] MEDS: Carvedilol 25 MG TAB PO SCH ×2 (07:41→16:31)
[2023-03-17] MEDS ORDERED: Non-Formulary Item 1 EACH (Atorvastatin Calcium [Atorvastatin Calcium] 80 MG Tablet) PER TUBE SCH (09:00)
[2023-03-17] MEDS: Lansoprazole 15 MG/5 ML (BATCHED)UDCUP PER TUBE SCH (09:03)
[2023-03-17] MEDS: Losartan 25 MG TAB PER TUBE SCH (09:03)
[2023-03-17] MEDS: hydrALAZINE 25 MG TAB PER TUBE SCH ×4 (09:03→20:12)
[2023-03-17] MEDS: Furosemide 40 MG TAB PER TUBE SCH (09:04)
[2023-03-17] MEDS: Insulin Glargine 30 UNITS/0.3 ML VIAL SC SCH (09:04)
[2023-03-17] MEDS: Amlodipine 10 MG TAB PER TUBE SCH (09:04)
[2023-03-17 16:31] VITALS: BP 174/76
[2023-03-17] MEDS: Atorvastatin Calcium 40 MG TAB PO SCH (20:12)
[2023-03-18 04:06] LABS: #Eosinphils 0.2 thou/uL (0.0-0.7); #Monocytes 0.5 thou/uL (0.11-0.59); #Neutrophils 7.9 thou/uL (1.40-6.50); %Basophils 0.4 % (0.0-1.0); %Eosinophils 1.8 % (0.0-10.0); %Lymphocytes 23.1 % (21.0-51.0); %Monocytes 4.8 % (0.0-10.0); %Neutrophils 69.3 % (42.0-75.0); Hematocrit 30.3 % (36.0-47.0); Hemoglobin 9.3 g/dL (12.0-16.0); Mean Corpuscular HGB CONC 30.7 g/dL (32.0-36.0); Mean Corpuscular Volume 91.3 fl (78.0-98.0); Mean Platelet Volume 11.6 fL (7.4-10.4); Platelet Count 257 10x3/uL (130-400); RBC Distribution Width 18.4 % (11.5-14.5); Red Blood Cell (RBC) Count 3.32 mill/uL (4.20-5.40); White Blood Cell (WBC) Count 11.3 10x3/uL (4.8-10.8)
[2023-03-18 04:28] LABS: Anion Gap 14 mmol/L (10-20); BUN (Urea Nitrogen) 19 mg/dL (9.8-20.1); Calc. Creatinine Clearance 129 mL/min (70-130); Carbon Dioxide 23 mmol/L (23-31); Chloride 101 mmol/L (98-107); Estimated GFR 78; Glucose 144 mg/dL (80-115); Potassium 4.1 mmol/L (3.5-5.1); Sodium 134 mmol/L (136-145)
[2023-03-18] MEDS ORDERED: hydrOXYzine 10 MG TAB PO SCH (06:00)
[2023-03-18] MEDS: HumaLOG 300 UNITS/3 ML VIAL SC PRN (06:19)
[2023-03-18] MEDS: Lansoprazole 15 MG/5 ML (BATCHED)UDCUP PER TUBE SCH (09:18)
[2023-03-18] MEDS: hydrALAZINE 25 MG TAB PER TUBE SCH ×3 (09:19→17:09)
[2023-03-18] MEDS: metFORMIN 500 MG TAB PER TUBE SCH ×2 (09:19→17:09)
[2023-03-18] MEDS: Losartan 25 MG TAB PER TUBE SCH (09:19)
[2023-03-18] MEDS: Insulin Glargine 30 UNITS/0.3 ML VIAL SC SCH (09:19)
[2023-03-18] MEDS: Carvedilol 25 MG TAB PO SCH ×2 (09:19→17:09)
[2023-03-18] MEDS: Furosemide 40 MG TAB PER TUBE SCH (09:19)
[2023-03-18] MEDS: Amlodipine 10 MG TAB PER TUBE SCH (09:19)
[2023-03-18 16:52] VITALS: TEMP 97.3
== END 2023-03-18 19:10 | DRG 871 ==
LOC: ERS 11:02 → CCU 16:30 → IMCU/EMU 03-18 00:44
PROVIDERS: ADMIT Family Medicine; ATTEND Family Medicine
PROC: 0T9B70Z Drainage of Bladder with Drainage Device, Via Natural or Artificial Opening (ICD-10-PCS; principal; 2023-03-06)
PROC: 06HY33Z Insertion of Infusion Device into Lower Vein, Percutaneous Approach (ICD-10-PCS; 2023-03-06)
PROC: 3E03329 Introduction of Other Anti-infective into Peripheral Vein, Percutaneous Approach (ICD-10-PCS; 2023-03-06)
PROC: 0BH17EZ Insertion of Endotracheal Airway into Trachea, Via Natural or Artificial Opening (ICD-10-PCS; 2023-03-06)
PROC: 0DH63UZ Insertion of Feeding Device into Stomach, Percutaneous Approach (ICD-10-PCS; 2023-03-06)
PROC: 4A133R1 Monitoring of Arterial Saturation, Peripheral, Percutaneous Approach (ICD-10-PCS; 2023-03-06)
PROC: 3E033XZ Introduction of Vasopressor into Peripheral Vein, Percutaneous Approach (ICD-10-PCS; 2023-03-06)
PROC: 5A1945Z Respiratory Ventilation, 24-96 Consecutive Hours (ICD-10-PCS; 2023-03-06)
PROC: 5A09557 Assistance with Respiratory Ventilation, Greater than 96 Consecutive Hours, Continuous Positive Airway Pressure (ICD-10-PCS; 2023-03-10)
PROC: 5A0945A Assistance with Respiratory Ventilation, 24-96 Consecutive Hours, High Flow/Velocity Cannula (ICD-10-PCS; 2023-03-15)
DX: A41.1 Sepsis due to other specified staphylococcus (principal); E11.10 Type 2 diabetes mellitus with ketoacidosis without coma; R65.21 Severe sepsis with septic shock; J96.01 Acute respiratory failure with hypoxia; J69.0 Pneumonitis due to inhalation of food and vomit; I21.A1 Myocardial infarction type 2; I69.359 Hemiplegia and hemiparesis following cerebral infarction affecting unspecified side; Z68.41 Body mass index [BMI] 40.0-44.9, adult; N17.9 Acute kidney failure, unspecified; I13.0 Hypertensive heart and chronic kidney disease with heart failure and stage 1 through stage 4 chronic kidney disease, or unspecified chronic kidney disease; Z66 Do not resuscitate; Z51.5 Encounter for palliative care; N18.9 Chronic kidney disease, unspecified; K05.10 Chronic gingivitis, plaque induced; R62.51 Failure to thrive (child); G47.33 Obstructive sleep apnea (adult) (pediatric); D63.1 Anemia in chronic kidney disease; I50.9 Heart failure, unspecified; I69.391 Dysphagia following cerebral infarction; F01.50 Vascular dementia, unspecified severity, without behavioral disturbance, psychotic disturbance, mood disturbance, and anxiety; E78.00 Pure hypercholesterolemia, unspecified; E87.6 Hypokalemia; E66.01 Morbid (severe) obesity due to excess calories; Z79.82 Long term (current) use of aspirin; Z79.899 Other long term (current) drug therapy; Z90.710 Acquired absence of both cervix and uterus
CPT/HCPCS: 31500; 36415; 36416; 36556; 36600; 43753; 51702; 70450; 71045; 71260; 74177; 80048; 80053; 80202; 81001; 82010; 82805; 83036; 83605; 83690; 83735; 84443; 84484; 85025; 85379; 85384; 85610; 85730; 87040; 87077; 93005; 93010; 93306; 94002; 94003; 94640; 94660; 96361; 96365; 96366; 96367; 96368; 96375; 99292; C9113; J1644; J1650; J1815; J1940; J2060; J2272; J2543; J2704; J3370; J3370-JW; J3480; J3490; J7030; J7050; J7060; Q9967

== ENCOUNTER 2023-04-07 16:38 | Inpatient (IN) | payer MEDICARE ==
[2023-04-07] MEDS ORDERED: Rocuronium Bromide 10 MG/ML (10ML VIAL) ONE ×2 (16:49→16:54)
[2023-04-07] MEDS ORDERED: EPINEPHrine 1 MG/10 ML Abboject SYRINGE ONE (16:54)
[2023-04-07] MEDS ORDERED: NOREPINEPHRINE 8 MG/250 ML-D5W 250 ML ONE ×2 (17:00→21:17)
[2023-04-07 17:43] LABS: Actual Bicarbonate (HCO3a) 24.7 mEq/L (22-28); Analyzer IN Cardio ER; Base Excess (BEa) 1.4 mEq/L (-2.0 to +3.0); CO2 Tension 34.4 mmHg (35.0-45.0); Calcium, Ionized (arterial) 1.23 mmol/L (1.12-1.30); Carboxyhemoglobin (COHb) 0.3 gm% (0.0-3.0); Hematocrit-ABG 33 % (36.0-47.0); Hemoglobin (Hb) 11.1 g/dL (12.0-16.0); O2 Tension (PaO2), arterial 116.5 mmHg (> 80.0); pH, Arterial 7.474 (7.35-7.45)
[2023-04-07 17:46] LABS: Puncture Site Right Brachial
[2023-04-07 18:03] LABS: Hematocrit 32.4 % (36.0-47.0); Hemoglobin 10.1 g/dL (12.0-16.0); Manual Diff?? YES; Mean Corpuscular HGB CONC 31.2 g/dL (32.0-36.0); Mean Corpuscular Hemoglobin 28.6 pg (27.0-31.0); Mean Corpuscular Volume 91.8 fl (78.0-98.0); Mean Platelet Volume 11.1 fL (7.4-10.4); Platelet Count 342 10x3/uL (130-400); RBC Distribution Width 17.2 % (11.5-14.5); Red Blood Cell (RBC) Count 3.53 mill/uL (4.20-5.40); White Blood Cell (WBC) Count 7.2 10x3/uL (4.8-10.8)
[2023-04-07 18:08] LABS: Delete Auto Diff?? YES
[2023-04-07] MEDS ORDERED: Vancomycin 1 GM/200 ML (FROZEN) BAG ONE (18:12)
[2023-04-07] MEDS ORDERED: Sodium Chloride 0.9% 100 ML ONE (18:12)
[2023-04-07] MEDS ORDERED: Cefepime 2 GM VIAL ONE (18:12)
[2023-04-07 18:25] LABS: ALT (SGPT) 21 U/L (8-55); AST (SGOT) 25 U/L (5-34); Albumin 3.3 g/dL (3.4-4.8); Alkaline Phosphatase 55 U/L (40-110); Anion Gap 20 mmol/L (10-20); BUN (Urea Nitrogen) 54 mg/dL (9.8-20.1); Bilirubin, Total 0.9 mg/dL (0.2-1.2); Calc. Creatinine Clearance 0 mL/min (70-130); Carbon Dioxide 24 mmol/L (23-31); Chloride 101 mmol/L (98-107); Estimated GFR 22; Globulin 3.9 g/dL (2.4-3.5); Glucose 374 mg/dL (80-115); Protein, Total 7.2 g/dL (5.8-8.1); Sodium 140 mmol/L (136-145)
[2023-04-07 18:26] LABS: Acetaminophen Less than 10 mcg/mL (10.0-30.0); Alcohol Less than 10.0 mg/dL (Less than 10); Lipase 36 U/L (8-78); Magnesium 2.3 mg/dL (1.6-2.6); Salicylate Less than 8.0 mg/dL (15.0-30.0)
[2023-04-07 18:31] LABS: Band 29 % (5-11); CellaVision Operator ID LAB.KB; Large Platelets 2.8 % (0-5); Lymphocytes 13 % (21-51); Monocytes 6 % (0-10); Neutrophil 50 % (42-75); Ovalocytes SLIGHT = 2-5 cells HPF (0-1); Platelet Adequacy Comment Platelets Normal; Polychromasia SLIGHT = 2-3 cells HPF (0-2); Reactive Lymphocytes 3 % (0-10); Smudge Cells 5.6 %; Total Cell Count 107
[2023-04-07 18:32] LABS: SARS-CoV-2 NAA Rapid Test Not Detected (NotDetected)
[2023-04-07 18:38] LABS: Troponin I 0.584 ng/mL (< 0.028)
[2023-04-07 19:21] LABS: Bacteria/HPF 4+ HPF (None Seen); Bilirubin Negative (Negative); Blood, Urine 1+ (Negative); CAUTI Indications for Culture Alt mental st,lethar; Clarity Extra Turbid (Clear); Glucose, Urine (Dipstick) Normal (Negative); Ketone, Urine Negative (Negative); Leukocyte 500 Leu/uL (Negative); Nitrite Negative (Negative); Protein, Urine (Dipstick) 300 mg/dL (Neg-Trace); Specific Gravity, Urine 1.013 (1.002-1.036); Urobilinogen Normal mg/dL (Less than 2); WBC/HPF Greater than 50 HPF (0-3); pH, Urine 7.5 (5.0-9.0)
[2023-04-07 19:22] LABS: Urine Culture Reflex Yes Yes
[2023-04-07] MEDS ORDERED: Acetaminophen 650 MG Suppository ONE ×2 (19:31→19:32)
[2023-04-07] MEDS ORDERED: Acetaminophen 325 MG Suppository ONE (19:31)
[2023-04-07] MEDS ORDERED: Acetaminophen 325 MG TAB PO PRN (20:02)
[2023-04-07] MEDS ORDERED: Dextrose 5% in Water 1,000 ML IV PRN (20:02)
[2023-04-07] MEDS ORDERED: Dextrose 50% Abboject 50 ML SYRINGE SLOW IVP PRN (20:02)
[2023-04-07] MEDS ORDERED: Glucagon 1 MG/ML KIT IM PRN (20:02)
[2023-04-07] MEDS ORDERED: HumaLOG 300 UNITS/3 ML VIAL SC PRN ×2 (20:09)
[2023-04-07] MEDS ORDERED: Furosemide 40 MG/4 ML VIAL SLOW IVP SCH (20:30)
[2023-04-07] MEDS ORDERED: Heparin 5,000 UNITS/ML VIAL SC SCH (21:00)
[2023-04-07 21:17] LABS: Lactic Acid 2.8 mmol/L (0.5-2.2)
[2023-04-07 21:30] LABS: Troponin I 0.799 ng/mL (< 0.028)
[2023-04-07] MEDS ORDERED: Vasopressin 20 UNITS in Sodium Chloride 0.9% 50 ML IV SCH (22:15)
[2023-04-07] MEDS: Vasopressin 20 UNITS, Admixture Fee 1 EACH in Sodium Chloride 0.9% 50 ML IV SCH (23:16)
[2023-04-08 00:24] LABS: Troponin I 1.353 ng/mL (< 0.028)
[2023-04-08] MEDS ORDERED: Vancomycin 1 GM in Premix 1 BAG IVPB SCH (01:00)
[2023-04-08] MEDS ORDERED: Heparin 10,000 UNITS/ 10 ML VIAL SLOW IVP SCH (01:15)
[2023-04-08] MEDS ORDERED: Heparin 25,000 units/D5W 500 ML IVPB SCH (01:30)
[2023-04-08] MEDS ORDERED: Ventilator Sedation Protocol 1 EACH FS SCH (02:00)
[2023-04-08] MEDS: NOREPINEPHRINE 8 MG/250 ML-D5W 250 ML IVPB SCH (02:00)
[2023-04-08] MEDS ORDERED: DISCONTINUE PREVIOUS NARCOTIC PAIN MEDICATIONS AND BENZODIAZEPINES FS SCH (02:15)
[2023-04-08] MEDS ORDERED: Fentanyl BOLUS 250 ML IVPB PRN (02:15)
[2023-04-08] MEDS ORDERED: Fentanyl CADD 100 ML IV SCH (02:15)
[2023-04-08] MEDS ORDERED: Vancomycin Dose by Levels Sliding Scale (Wt > 99) FS SCH (02:15)
[2023-04-08] MEDS ORDERED: Propofol BOLUS 1,000 MG/100 ML VIAL IV PRN (02:15)
[2023-04-08] MEDS ORDERED: Propofol 1,000 MG/100 ML VIAL IV PRN (02:15)
[2023-04-08 02:42] LABS: Hemoglobin 9.5 g/dL (12.0-16.0); Platelet Count 246 10x3/uL (130-400)
[2023-04-08 03:27] LABS: Legionella Urinary Ag Negative (Negative); Strep pneumo Urine Ag NEGATIVE (NEGATIVE)
[2023-04-08 04:06] LABS: Troponin I 4.224 ng/mL (< 0.028)
[2023-04-08 04:07] LABS: Hematocrit 30.9 % (36.0-47.0); Hemoglobin 9.6 g/dL (12.0-16.0); Manual Diff?? YES; Mean Corpuscular HGB CONC 31.1 g/dL (32.0-36.0); Mean Corpuscular Hemoglobin 28.5 pg (27.0-31.0); Mean Corpuscular Volume 91.7 fl (78.0-98.0); Mean Platelet Volume 11.3 fL (7.4-10.4); Platelet Count 234 10x3/uL (130-400); Red Blood Cell (RBC) Count 3.37 mill/uL (4.20-5.40); White Blood Cell (WBC) Count 12.3 10x3/uL (4.8-10.8)
[2023-04-08 04:28] LABS: Delete Auto Diff?? YES
[2023-04-08 04:31] LABS: ALT (SGPT) 56 U/L (8-55); AST (SGOT) 72 U/L (5-34); Albumin 3.2 g/dL (3.4-4.8); Alkaline Phosphatase 53 U/L (40-110); Anion Gap 18 mmol/L (10-20); BUN (Urea Nitrogen) 63 mg/dL (9.8-20.1); Bilirubin, Total 0.9 mg/dL (0.2-1.2); Calc. Creatinine Clearance 39 mL/min (70-130); Calcium 9.7 mg/dL (7.8-10.44); Carbon Dioxide 26 mmol/L (23-31); Chloride 99 mmol/L (98-107); Estimated GFR 19; Globulin 3.8 g/dL (2.4-3.5); Potassium 3.9 mmol/L (3.5-5.1); Sodium 139 mmol/L (136-145)
[2023-04-08 04:45] LABS: Glucose 428 mg/dL (80-115)
[2023-04-08 04:54] LABS: Band 29 % (5-11); CellaVision Operator ID lab.abc; Large Platelets 5.5 % (0-5); Lymphocytes 17 % (21-51); Metamyelocyte 1 % (0-0); Monocytes 6 % (0-10); Neutrophil 45 % (42-75); Platelet Adequacy Comment Platelets Normal; Polychromasia SLIGHT = 2-3 cells HPF (0-2); Smudge Cells 10.1 %; Total Cell Count 109
[2023-04-08] MEDS ORDERED: Meropenem 1 GM in Sodium Chloride 0.9% 100 ML IVPB SCH (05:00)
[2023-04-08] MEDS: HumaLOG 300 UNITS/3 ML VIAL SC PRN ×6 (05:10→23:56)
[2023-04-08] MEDS: Vasopressin 20 UNITS, Admixture Fee 1 EACH in Sodium Chloride 0.9% 50 ML IV SCH (05:40)
[2023-04-08 06:22] LABS: Troponin I 6.707 ng/mL (< 0.028)
[2023-04-08 08:13] LABS: Actual Bicarbonate (HCO3a) 25.3 mEq/L (22-28); Base Excess (BEa) 2.2 mEq/L (-2.0 to +3.0); CO2 Tension 33.7 mmHg (35.0-45.0); Carboxyhemoglobin (COHb) 0.3 gm% (0.0-3.0); Hematocrit-ABG 29 % (36.0-47.0); Hemoglobin (Hb) 9.8 g/dL (12.0-16.0); O2 Tension (PaO2), arterial 72.8 mmHg (> 80.0); pH, Arterial 7.494 (7.35-7.45)
[2023-04-08 08:15] LABS: ALV-art Gradient 170.275 mmHg (0-20); Puncture Site Right Brachial
[2023-04-08] MEDS: Aspirin Chewable 81 MG TAB PER TUBE SCH (09:10)
[2023-04-08] MEDS: Insulin Glargine 30 UNITS/0.3 ML VIAL SC SCH (09:10)
[2023-04-08] MEDS: Clopidogrel Bisulfate 75 MG TAB PER TUBE SCH (09:10)
[2023-04-08] MEDS: Atorvastatin Calcium 40 MG TAB PER TUBE SCH (09:10)
[2023-04-08] MEDS: Lansoprazole 15 MG/5 ML (BATCHED)UDCUP PER TUBE SCH (09:27)
[2023-04-08] MEDS: Meropenem 500 MG in Sodium Chloride 0.9% 100 ML IVPB SCH (13:32)
[2023-04-08] MEDS: Heparin 5,000 UNITS/ML VIAL SC SCH (21:02)
[2023-04-08 22:04] LABS: Vancomycin, Random 19.8 ug/mL (See Comment)
[2023-04-08] MEDS ORDERED: Vancomycin HCl 750 MG in Sodium Chloride 0.9% 250 ML 250 ML IVPB SCH (23:00)
[2023-04-09] MEDS: Meropenem 500 MG in Sodium Chloride 0.9% 100 ML IVPB SCH (02:58)
[2023-04-09] MEDS: HumaLOG 300 UNITS/3 ML VIAL SC PRN ×4 (03:43→21:16)
[2023-04-09 04:21] LABS: Hematocrit 24.9 % (36.0-47.0); Hemoglobin 7.7 g/dL (12.0-16.0); Manual Diff?? YES; Mean Corpuscular HGB CONC 30.9 g/dL (32.0-36.0); Mean Corpuscular Hemoglobin 28.1 pg (27.0-31.0); Mean Corpuscular Volume 90.9 fl (78.0-98.0); Mean Platelet Volume 11.5 fL (7.4-10.4); Platelet Count 199 10x3/uL (130-400); RBC Distribution Width 17.1 % (11.5-14.5); Red Blood Cell (RBC) Count 2.74 mill/uL (4.20-5.40); White Blood Cell (WBC) Count 15.1 10x3/uL (4.8-10.8)
[2023-04-09 05:42] LABS: Lactic Acid 2.7 mmol/L (0.5-2.2)
[2023-04-09] MEDS: NOREPINEPHRINE 8 MG/250 ML-D5W 250 ML IVPB SCH (05:45)
[2023-04-09 05:51] LABS: ALT (SGPT) 105 U/L (8-55); AST (SGOT) 84 U/L (5-34); Alkaline Phosphatase 57 U/L (40-110); Anion Gap 16 mmol/L (10-20); BUN (Urea Nitrogen) 70 mg/dL (9.8-20.1); Bilirubin, Total 0.6 mg/dL (0.2-1.2); Calc. Creatinine Clearance 47 mL/min (70-130); Carbon Dioxide 26 mmol/L (23-31); Chloride 102 mmol/L (98-107); Estimated GFR 23; Globulin 3.1 g/dL (2.4-3.5); Glucose 177 mg/dL (80-115); Potassium 3.2 mmol/L (3.5-5.1); Protein, Total 6.1 g/dL (5.8-8.1); Sodium 141 mmol/L (136-145)
[2023-04-09 05:59] LABS: Calcium 9.2 mg/dL (7.8-10.44)
[2023-04-09 06:06] LABS: Delete Auto Diff?? YES
[2023-04-09 07:09] LABS: Anisocytosis SLIGHT = 6-15 cells HPF (0-5); Band 44 % (5-11); CellaVision Operator ID LAB.JMM; Lymphocytes 4 % (21-51); Macrocytosis SLIGHT = 6-15 cells HPF (0-5); Metamyelocyte 1 % (0-0); Monocytes 3 % (0-10); Neutrophil 48 % (42-75); Platelet Adequacy Comment Platelets Normal; Polychromasia SLIGHT = 2-3 cells HPF (0-2); Reactive Lymphocytes 1 % (0-10); Smudge Cells 15.5 %; Total Cell Count 103
[2023-04-09] MEDS: Potassium Chloride 20 MEQ in Premix 1 BAG IVPB SCH ×2 (07:56→09:22)
[2023-04-09] MEDS: Atorvastatin Calcium 40 MG TAB PER TUBE SCH (08:00)
[2023-04-09] MEDS: Heparin 5,000 UNITS/ML VIAL SC SCH ×3 (08:00→21:11)
[2023-04-09] MEDS: Clopidogrel Bisulfate 75 MG TAB PER TUBE SCH (08:00)
[2023-04-09] MEDS: Lansoprazole 15 MG/5 ML (BATCHED)UDCUP PER TUBE SCH (08:00)
[2023-04-09] MEDS: Aspirin Chewable 81 MG TAB PER TUBE SCH (08:00)
[2023-04-09] MEDS ORDERED: FLU VACC QS2023(65UP)/MF59C/PF 60 MCG/0.5 ML SYRINGE IM ONE (09:00)
[2023-04-09] MEDS: Insulin Glargine 30 UNITS/0.3 ML VIAL SC SCH (09:21)
[2023-04-09] MEDS: Meropenem 1 GM in Sodium Chloride 0.9% 100 ML IVPB SCH (13:25)
[2023-04-09 16:45] LABS: Potassium 3.6 mmol/L (3.5-5.1)
[2023-04-09 22:46] LABS: Vancomycin, Random 19.8 ug/mL (See Comment)
[2023-04-09] MEDS ORDERED: Vancomycin 1 GM in Premix 1 BAG IVPB SCH (23:15)
[2023-04-10] MEDS: Scopolamine 1 mg/72 hour Patch TD SCH (00:07)
[2023-04-10] MEDS: Meropenem 1 GM in Sodium Chloride 0.9% 100 ML IVPB SCH (01:01)
[2023-04-10 04:52] LABS: Hematocrit 25.3 % (36.0-47.0); Hemoglobin 7.8 g/dL (12.0-16.0); Manual Diff?? YES; Mean Corpuscular HGB CONC 30.8 g/dL (32.0-36.0); Mean Corpuscular Hemoglobin 27.9 pg (27.0-31.0); Mean Corpuscular Volume 90.4 fl (78.0-98.0); Mean Platelet Volume 11.5 fL (7.4-10.4); Platelet Count 179 10x3/uL (130-400); RBC Distribution Width 17.1 % (11.5-14.5); White Blood Cell (WBC) Count 15.8 10x3/uL (4.8-10.8)
[2023-04-10] MEDS: HumaLOG 300 UNITS/3 ML VIAL SC PRN ×2 (05:31→16:53)
[2023-04-10 05:45] LABS: Delete Auto Diff?? YES
[2023-04-10 06:55] LABS: Band 18 % (5-11); CellaVision Operator ID LAB.GE; Eosinophils 1 % (0-10); Lymphocytes 9 % (21-51); Monocytes 6 % (0-10); Neutrophil 66 % (42-75); Platelet Adequacy Comment Platelets Normal; Polychromasia SLIGHT = 2-3 cells HPF (0-2); Total Cell Count 100
[2023-04-10 07:43] LABS: ALT (SGPT) 322 U/L (8-55); AST (SGOT) 235 U/L (5-34); Albumin 2.7 g/dL (3.4-4.8); Alkaline Phosphatase 90 U/L (40-110); Anion Gap 13 mmol/L (10-20); BUN (Urea Nitrogen) 66 mg/dL (9.8-20.1); Bilirubin, Total 0.5 mg/dL (0.2-1.2); Calc. Creatinine Clearance 63 mL/min (70-130); Calcium 8.8 mg/dL (7.8-10.44); Carbon Dioxide 29 mmol/L (23-31); Chloride 102 mmol/L (98-107); Estimated GFR 33; Globulin 3.4 g/dL (2.4-3.5); Glucose 195 mg/dL (80-115); Potassium 3.4 mmol/L (3.5-5.1); Protein, Total 6.1 g/dL (5.8-8.1); Sodium 141 mmol/L (136-145)
[2023-04-10] MEDS: Lansoprazole 15 MG/5 ML (BATCHED)UDCUP PER TUBE SCH (10:16)
[2023-04-10] MEDS: Aspirin Chewable 81 MG TAB PER TUBE SCH (10:16)
[2023-04-10] MEDS: Clopidogrel Bisulfate 75 MG TAB PER TUBE SCH (10:16)
[2023-04-10] MEDS: Insulin Glargine 30 UNITS/0.3 ML VIAL SC SCH (10:17)
[2023-04-10] MEDS: Potassium Chloride 20 MEQ in Premix 1 BAG IVPB SCH ×2 (10:19→11:50)
[2023-04-10] MEDS: Atorvastatin Calcium 40 MG TAB PER TUBE SCH (10:25)
[2023-04-10] MEDS: CEFAZOLIN 2 GM in Sodium Chloride 0.9% 100 ML IVPB SCH ×2 (10:33→16:54)
[2023-04-10] MEDS: Lorazepam 2 MG/ML VIAL SLOW IVP PRN (22:48)
[2023-04-11] MEDS: CEFAZOLIN 2 GM in Sodium Chloride 0.9% 100 ML IVPB SCH ×3 (00:30→17:55)
[2023-04-11] MEDS: Lorazepam 2 MG/ML VIAL SLOW IVP PRN ×2 (01:18→12:08)
[2023-04-11 05:37] LABS: Hemoglobin 7.3 g/dL (12.0-16.0); Manual Diff?? YES; Mean Corpuscular HGB CONC 30.4 g/dL (32.0-36.0); Mean Corpuscular Hemoglobin 28.2 pg (27.0-31.0); Mean Corpuscular Volume 92.7 fl (78.0-98.0); Mean Platelet Volume 12.3 fL (7.4-10.4); Platelet Count 196 10x3/uL (130-400); RBC Distribution Width 17.5 % (11.5-14.5); Red Blood Cell (RBC) Count 2.59 mill/uL (4.20-5.40); White Blood Cell (WBC) Count 11.4 10x3/uL (4.8-10.8)
[2023-04-11 05:57] LABS: Delete Auto Diff?? YES
[2023-04-11 06:00] LABS: ALT (SGPT) 447 U/L (8-55); AST (SGOT) 319 U/L (5-34); Albumin 2.8 g/dL (3.4-4.8); Alkaline Phosphatase 84 U/L (40-110); Anion Gap 11 mmol/L (10-20); BUN (Urea Nitrogen) 50 mg/dL (9.8-20.1); Bilirubin, Total 0.4 mg/dL (0.2-1.2); Calc. Creatinine Clearance 93 mL/min (70-130); Calcium 8.9 mg/dL (7.8-10.44); Carbon Dioxide 28 mmol/L (23-31); Chloride 107 mmol/L (98-107); Estimated GFR 53; Globulin 3.2 g/dL (2.4-3.5); Glucose 116 mg/dL (80-115); Magnesium 2.8 mg/dL (1.6-2.6); Potassium 3.5 mmol/L (3.5-5.1); Sodium 142 mmol/L (136-145)
[2023-04-11 06:28] LABS: Lactic Acid 1.4 mmol/L (0.5-2.2)
[2023-04-11] MEDS: Lansoprazole 15 MG/5 ML (BATCHED)UDCUP PER TUBE SCH (08:57)
[2023-04-11] MEDS: Insulin Glargine 30 UNITS/0.3 ML VIAL SC SCH (08:58)
[2023-04-11] MEDS: Aspirin Chewable 81 MG TAB PER TUBE SCH (08:58)
[2023-04-11] MEDS: Clopidogrel Bisulfate 75 MG TAB PER TUBE SCH (08:58)
[2023-04-11] MEDS: Atorvastatin Calcium 40 MG TAB PER TUBE SCH (08:58)
[2023-04-11 09:05] LABS: Band 4 % (5-11); Eosinophils 4 % (0-10); Hypochromia SLIGHT = 6-15 cells (100X) (0-5/hpf); Lymphocytes 24 % (21-51); Monocytes 3 % (0-10); Neutrophil 65 % (42-75); Platelet Adequacy Comment Platelets Normal; Polychromasia SLIGHT = 2-3 cells (100X) (0-2/hpf)
[2023-04-11] MEDS: Morphine 2 MG/ML VIAL SLOW IVP PRN ×2 (11:17→12:17)
[2023-04-11] MEDS ORDERED: Ventilator Sedation Protocol 1 EACH FS ONE (13:07)
[2023-04-11] MEDS ORDERED: Fentanyl BOLUS 250 ML IVPB PRN (13:15)
[2023-04-11] MEDS ORDERED: Propofol BOLUS 1,000 MG/100 ML VIAL IV PRN (13:15)
[2023-04-11] MEDS ORDERED: Morphine 2 MG/ML VIAL SLOW IVP PRN (13:15)
[2023-04-11] MEDS ORDERED: Lorazepam 2 MG/ML VIAL SLOW IVP PRN (13:15)
[2023-04-11] MEDS ORDERED: Fentanyl CADD 100 ML IV SCH (13:15)
[2023-04-11] MEDS: Propofol 1,000 MG/100 ML VIAL IV PRN (13:37)
[2023-04-12] MEDS: CEFAZOLIN 2 GM in Sodium Chloride 0.9% 100 ML IVPB SCH ×3 (00:25→17:16)
[2023-04-12] MEDS: Propofol 1,000 MG/100 ML VIAL IV PRN ×2 (03:36→14:12)
[2023-04-12 05:16] LABS: #Eosinphils 0.3 thou/uL (0.0-0.7); #Monocytes 0.6 thou/uL (0.11-0.59); #Neutrophils 6.2 thou/uL (1.40-6.50); %Basophils 0.2 % (0.0-1.0); %Eosinophils 3.5 % (0.0-10.0); %Lymphocytes 20.9 % (21.0-51.0); %Monocytes 6.6 % (0.0-10.0); %Neutrophils 66.7 % (42.0-75.0); Hemoglobin 8.1 g/dL (12.0-16.0); Mean Corpuscular HGB CONC 31.2 g/dL (32.0-36.0); Mean Corpuscular Hemoglobin 28.4 pg (27.0-31.0); Mean Corpuscular Volume 91.2 fl (78.0-98.0); Mean Platelet Volume 11.3 fL (7.4-10.4); Platelet Count 195 10x3/uL (130-400); RBC Distribution Width 17.3 % (11.5-14.5); Red Blood Cell (RBC) Count 2.85 mill/uL (4.20-5.40); White Blood Cell (WBC) Count 9.4 10x3/uL (4.8-10.8)
[2023-04-12 05:40] LABS: ALT (SGPT) 349 U/L (8-55); AST (SGOT) 301 U/L (5-34); Alkaline Phosphatase 89 U/L (40-110); Anion Gap 13 mmol/L (10-20); BUN (Urea Nitrogen) 35 mg/dL (9.8-20.1); Bilirubin, Total 0.3 mg/dL (0.2-1.2); Calc. Creatinine Clearance 119 mL/min (70-130); Carbon Dioxide 25 mmol/L (23-31); Chloride 108 mmol/L (98-107); Estimated GFR 71; Globulin 3.4 g/dL (2.4-3.5); Glucose 120 mg/dL (80-115); Potassium 3.3 mmol/L (3.5-5.1); Protein, Total 6.4 g/dL (5.8-8.1); Sodium 143 mmol/L (136-145)
[2023-04-12] MEDS ORDERED: Labetalol HCl 100 MG/20 ML VIAL SLOW IVP PRN (08:06)
[2023-04-12] MEDS ORDERED: Electrolyte Replacement Protocol 1 EACH FS SCH (08:15)
[2023-04-12] MEDS ORDERED: Electrolyte Replacement Protocol FS PRN (08:45)
[2023-04-12] MEDS ORDERED: Potassium Bicarbonate/Cit Ac 20 MEQ TAB PER TUBE SCH (08:45)
[2023-04-12] MEDS: Amlodipine 10 MG TAB PER TUBE SCH (09:17)
[2023-04-12] MEDS: Senokot S 8.6-50 MG TAB PO SCH ×2 (09:17→21:55)
[2023-04-12] MEDS: Atorvastatin Calcium 40 MG TAB PER TUBE SCH (09:17)
[2023-04-12] MEDS: Aspirin Chewable 81 MG TAB PER TUBE SCH (09:17)
[2023-04-12] MEDS: Clopidogrel Bisulfate 75 MG TAB PER TUBE SCH (09:17)
[2023-04-12] MEDS: Lansoprazole 15 MG/5 ML (BATCHED)UDCUP PER TUBE SCH (09:19)
[2023-04-12] MEDS: Polyethylene Glycol 3350 17 GM Packet PER TUBE SCH (09:19)
[2023-04-12] MEDS: Insulin Glargine 30 UNITS/0.3 ML VIAL SC SCH (09:19)
[2023-04-12] MEDS ORDERED: Furosemide 40 MG/4 ML VIAL SLOW IVP SCH (15:45)
[2023-04-12] MEDS: Losartan 25 MG TAB PER TUBE SCH (21:55)
[2023-04-13] MEDS: CEFAZOLIN 2 GM in Sodium Chloride 0.9% 100 ML IVPB SCH ×3 (00:44→16:57)
[2023-04-13] MEDS: Scopolamine 1 mg/72 hour Patch TD SCH (00:46)
[2023-04-13] MEDS: Propofol 1,000 MG/100 ML VIAL IV PRN (04:16)
[2023-04-13 04:36] LABS: #Eosinphils 0.3 thou/uL (0.0-0.7); #Monocytes 0.6 thou/uL (0.11-0.59); #Neutrophils 4.6 thou/uL (1.40-6.50); %Basophils 0.3 % (0.0-1.0); %Eosinophils 3.8 % (0.0-10.0); %Monocytes 7.8 % (0.0-10.0); %Neutrophils 61.1 % (42.0-75.0); Hemoglobin 8.6 g/dL (12.0-16.0); Mean Corpuscular HGB CONC 30.7 g/dL (32.0-36.0); Mean Corpuscular Hemoglobin 28.2 pg (27.0-31.0); Mean Corpuscular Volume 91.8 fl (78.0-98.0); Platelet Count 222 10x3/uL (130-400); RBC Distribution Width 17.4 % (11.5-14.5); Red Blood Cell (RBC) Count 3.05 mill/uL (4.20-5.40); White Blood Cell (WBC) Count 7.4 10x3/uL (4.8-10.8)
[2023-04-13 05:00] LABS: ALT (SGPT) 167 U/L (8-55); AST (SGOT) 149 U/L (5-34); Albumin 2.9 g/dL (3.4-4.8); Alkaline Phosphatase 86 U/L (40-110); Anion Gap 14 mmol/L (10-20); BUN (Urea Nitrogen) 25 mg/dL (9.8-20.1); Bilirubin, Total 0.4 mg/dL (0.2-1.2); Calc. Creatinine Clearance 128 mL/min (70-130); Carbon Dioxide 26 mmol/L (23-31); Chloride 108 mmol/L (98-107); Estimated GFR 77; Globulin 3.5 g/dL (2.4-3.5); Glucose 173 mg/dL (80-115); Potassium 3.8 mmol/L (3.5-5.1); Protein, Total 6.4 g/dL (5.8-8.1); Sodium 144 mmol/L (136-145)
[2023-04-13 05:04] VITALS: BMI 47.6
[2023-04-13] MEDS: HumaLOG 300 UNITS/3 ML VIAL SC PRN ×2 (06:38→16:59)
[2023-04-13] MEDS: Senokot S 8.6-50 MG TAB PO SCH ×2 (09:53→20:53)
[2023-04-13] MEDS: Losartan 25 MG TAB PER TUBE SCH (09:53)
[2023-04-13] MEDS: Atorvastatin Calcium 40 MG TAB PER TUBE SCH (09:53)
[2023-04-13] MEDS: Clopidogrel Bisulfate 75 MG TAB PER TUBE SCH (09:53)
[2023-04-13] MEDS: Amlodipine 10 MG TAB PER TUBE SCH (09:53)
[2023-04-13] MEDS: Aspirin Chewable 81 MG TAB PER TUBE SCH (09:54)
[2023-04-13] MEDS: Lansoprazole 15 MG/5 ML (BATCHED)UDCUP PER TUBE SCH (09:55)
[2023-04-13] MEDS: Polyethylene Glycol 3350 17 GM Packet PER TUBE SCH (09:56)
[2023-04-13] MEDS: Insulin Glargine 30 UNITS/0.3 ML VIAL SC SCH (09:56)
[2023-04-13] MEDS ORDERED: Furosemide 40 MG/4 ML VIAL SLOW IVP SCH (12:00)
[2023-04-14] MEDS: CEFAZOLIN 2 GM in Sodium Chloride 0.9% 100 ML IVPB SCH ×3 (01:22→17:03)
[2023-04-14] MEDS: HumaLOG 300 UNITS/3 ML VIAL SC PRN (06:14)
[2023-04-14] MEDS: Aspirin Chewable 81 MG TAB PER TUBE SCH (09:08)
[2023-04-14] MEDS: Senokot S 8.6-50 MG TAB PO SCH ×2 (09:08→19:22)
[2023-04-14] MEDS: Amlodipine 10 MG TAB PER TUBE SCH (09:08)
[2023-04-14] MEDS: Polyethylene Glycol 3350 17 GM Packet PER TUBE SCH (09:08)
[2023-04-14] MEDS: Losartan 25 MG TAB PER TUBE SCH (09:08)
[2023-04-14] MEDS: Atorvastatin Calcium 40 MG TAB PER TUBE SCH (09:08)
[2023-04-14] MEDS: Clopidogrel Bisulfate 75 MG TAB PER TUBE SCH (09:08)
[2023-04-14] MEDS: Lansoprazole 15 MG/5 ML (BATCHED)UDCUP PER TUBE SCH (09:09)
[2023-04-14] MEDS: Insulin Glargine 30 UNITS/0.3 ML VIAL SC SCH (09:09)
[2023-04-14] MEDS: Furosemide 40 MG/4 ML VIAL SLOW IVP SCH (09:09)
[2023-04-14 14:34] LABS: #Eosinphils 0.3 thou/uL (0.0-0.7); #Monocytes 0.6 thou/uL (0.11-0.59); #Neutrophils 5.8 thou/uL (1.40-6.50); %Basophils 0.2 % (0.0-1.0); %Eosinophils 3.1 % (0.0-10.0); %Lymphocytes 24.7 % (21.0-51.0); %Monocytes 6.6 % (0.0-10.0); %Neutrophils 63.6 % (42.0-75.0); Hematocrit 27.7 % (36.0-47.0); Hemoglobin 8.4 g/dL (12.0-16.0); Mean Corpuscular HGB CONC 30.3 g/dL (32.0-36.0); Mean Corpuscular Hemoglobin 28.3 pg (27.0-31.0); Mean Corpuscular Volume 93.3 fl (78.0-98.0); Mean Platelet Volume 11.6 fL (7.4-10.4); Platelet Count 242 10x3/uL (130-400); RBC Distribution Width 17.1 % (11.5-14.5); Red Blood Cell (RBC) Count 2.97 mill/uL (4.20-5.40); White Blood Cell (WBC) Count 9.1 10x3/uL (4.8-10.8)
[2023-04-14 15:00] LABS: ALT (SGPT) 53 U/L (8-55); AST (SGOT) 56 U/L (5-34); Alkaline Phosphatase 88 U/L (40-110); Anion Gap 14 mmol/L (10-20); BUN (Urea Nitrogen) 19 mg/dL (9.8-20.1); Bilirubin, Total 0.3 mg/dL (0.2-1.2); Calc. Creatinine Clearance 158 mL/min (70-130); Carbon Dioxide 24 mmol/L (23-31); Chloride 108 mmol/L (98-107); Estimated GFR 96; Globulin 3.5 g/dL (2.4-3.5); Glucose 166 mg/dL (80-115); Potassium 3.5 mmol/L (3.5-5.1); Protein, Total 6.5 g/dL (5.8-8.1); Sodium 142 mmol/L (136-145)
[2023-04-15] MEDS: CEFAZOLIN 2 GM in Sodium Chloride 0.9% 100 ML IVPB SCH ×3 (01:13→17:02)
[2023-04-15 04:45] LABS: #Eosinphils 0.3 thou/uL (0.0-0.7); #Monocytes 0.6 thou/uL (0.11-0.59); %Basophils 0.4 % (0.0-1.0); %Eosinophils 3.1 % (0.0-10.0); %Monocytes 7.1 % (0.0-10.0); %Neutrophils 61.7 % (42.0-75.0); Hematocrit 29.8 % (36.0-47.0); Hemoglobin 8.9 g/dL (12.0-16.0); Mean Corpuscular HGB CONC 29.9 g/dL (32.0-36.0); Mean Corpuscular Hemoglobin 28.1 pg (27.0-31.0); Mean Platelet Volume 11.2 fL (7.4-10.4); Platelet Count 262 10x3/uL (130-400); RBC Distribution Width 16.6 % (11.5-14.5); Red Blood Cell (RBC) Count 3.17 mill/uL (4.20-5.40); White Blood Cell (WBC) Count 8.1 10x3/uL (4.8-10.8)
[2023-04-15 05:17] LABS: ALT (SGPT) 41 U/L (8-55); AST (SGOT) 56 U/L (5-34); Albumin 2.9 g/dL (3.4-4.8); Alkaline Phosphatase 87 U/L (40-110); Anion Gap 14 mmol/L (10-20); BUN (Urea Nitrogen) 17 mg/dL (9.8-20.1); Bilirubin, Total 0.3 mg/dL (0.2-1.2); Calc. Creatinine Clearance 149 mL/min (70-130); Carbon Dioxide 22 mmol/L (23-31); Chloride 109 mmol/L (98-107); Estimated GFR 93; Globulin 3.4 g/dL (2.4-3.5); Glucose 208 mg/dL (80-115); Potassium 3.7 mmol/L (3.5-5.1); Protein, Total 6.3 g/dL (5.8-8.1); Sodium 141 mmol/L (136-145)
[2023-04-15] MEDS: HumaLOG 300 UNITS/3 ML VIAL SC PRN ×3 (06:31→16:13)
[2023-04-15] MEDS ORDERED: cloNIDine 0.1 MG TAB PER TUBE PRN (07:36)
[2023-04-15] MEDS: Lansoprazole 15 MG/5 ML (BATCHED)UDCUP PER TUBE SCH (09:01)
[2023-04-15] MEDS: Furosemide 40 MG/4 ML VIAL SLOW IVP SCH (09:02)
[2023-04-15] MEDS: Polyethylene Glycol 3350 17 GM Packet PER TUBE SCH (09:02)
[2023-04-15] MEDS: Atorvastatin Calcium 40 MG TAB PER TUBE SCH (09:03)
[2023-04-15] MEDS: Amlodipine 10 MG TAB PER TUBE SCH (09:03)
[2023-04-15] MEDS: Aspirin Chewable 81 MG TAB PER TUBE SCH (09:04)
[2023-04-15] MEDS: Clopidogrel Bisulfate 75 MG TAB PER TUBE SCH (09:04)
[2023-04-15] MEDS: Losartan 25 MG TAB PER TUBE SCH (09:04)
[2023-04-15] MEDS: Insulin Glargine 30 UNITS/0.3 ML VIAL SC SCH (09:05)
[2023-04-15] MEDS: Senokot S 8.6-50 MG TAB PO SCH ×2 (09:05→20:59)
[2023-04-16] MEDS: CEFAZOLIN 2 GM in Sodium Chloride 0.9% 100 ML IVPB SCH ×2 (01:18→08:23)
[2023-04-16] MEDS: Scopolamine 1 mg/72 hour Patch TD SCH (01:18)
[2023-04-16] MEDS: HumaLOG 300 UNITS/3 ML VIAL SC PRN (06:49)
[2023-04-16] MEDS: Senokot S 8.6-50 MG TAB PO SCH (08:17)
[2023-04-16] MEDS: Polyethylene Glycol 3350 17 GM Packet PER TUBE SCH (08:17)
[2023-04-16] MEDS: Losartan 25 MG TAB PER TUBE SCH (08:22)
[2023-04-16] MEDS: Clopidogrel Bisulfate 75 MG TAB PER TUBE SCH (08:22)
[2023-04-16] MEDS: Amlodipine 10 MG TAB PER TUBE SCH (08:22)
[2023-04-16] MEDS: Atorvastatin Calcium 40 MG TAB PER TUBE SCH (08:23)
[2023-04-16] MEDS: Aspirin Chewable 81 MG TAB PER TUBE SCH (08:23)
[2023-04-16] MEDS: Furosemide 40 MG/4 ML VIAL SLOW IVP SCH (08:23)
[2023-04-16] MEDS: Insulin Glargine 30 UNITS/0.3 ML VIAL SC SCH (08:23)
[2023-04-16] MEDS: Lansoprazole 15 MG/5 ML (BATCHED)UDCUP PER TUBE SCH (08:23)
[2023-04-16 08:24] VITALS: BP 126/49
[2023-04-16 10:20] VITALS: TEMP 100
== END 2023-04-16 10:42 | disposition hospice, inpatient (51) | DRG 870 ==
LOC: ERS 16:38 → CCU 19:12
PROVIDERS: ADMIT Student in an Organized Health Care Education/Training Program; ATTEND Student in an Organized Health Care Education/Training Program
PROC: 0T9B70Z Drainage of Bladder with Drainage Device, Via Natural or Artificial Opening (ICD-10-PCS; principal; 2023-04-07)
PROC: 5A1955Z Respiratory Ventilation, Greater than 96 Consecutive Hours (ICD-10-PCS; 2023-04-07)
PROC: 06HY33Z Insertion of Infusion Device into Lower Vein, Percutaneous Approach (ICD-10-PCS; 2023-04-07)
PROC: 0DH67UZ Insertion of Feeding Device into Stomach, Via Natural or Artificial Opening (ICD-10-PCS; 2023-04-07)
PROC: 0BH17EZ Insertion of Endotracheal Airway into Trachea, Via Natural or Artificial Opening (ICD-10-PCS; 2023-04-07)
PROC: 4A133R1 Monitoring of Arterial Saturation, Peripheral, Percutaneous Approach (ICD-10-PCS; 2023-04-07)
PROC: 3E043XZ Introduction of Vasopressor into Central Vein, Percutaneous Approach (ICD-10-PCS; 2023-04-07)
PROC: 3E04329 Introduction of Other Anti-infective into Central Vein, Percutaneous Approach (ICD-10-PCS; 2023-04-07)
DX: A41.01 Sepsis due to Methicillin susceptible Staphylococcus aureus (principal); I21.A1 Myocardial infarction type 2; G93.41 Metabolic encephalopathy; J69.0 Pneumonitis due to inhalation of food and vomit; R65.21 Severe sepsis with septic shock; J96.01 Acute respiratory failure with hypoxia; I50.33 Acute on chronic diastolic (congestive) heart failure; T80.211A Bloodstream infection due to central venous catheter, initial encounter; N39.0 Urinary tract infection, site not specified; E87.20 Acidosis, unspecified; N17.9 Acute kidney failure, unspecified; Z68.42 Body mass index [BMI] 45.0-49.9, adult; Z51.5 Encounter for palliative care; Z66 Do not resuscitate; Z79.4 Long term (current) use of insulin; Z79.899 Other long term (current) drug therapy; Z79.82 Long term (current) use of aspirin; E66.01 Morbid (severe) obesity due to excess calories; E78.5 Hyperlipidemia, unspecified; Z90.710 Acquired absence of both cervix and uterus; Z98.890 Other specified postprocedural states; E11.65 Type 2 diabetes mellitus with hyperglycemia; D64.9 Anemia, unspecified; E87.6 Hypokalemia; E88.09 Other disorders of plasma-protein metabolism, not elsewhere classified; Z11.52 Encounter for screening for COVID-19; F01.50 Vascular dementia, unspecified severity, without behavioral disturbance, psychotic disturbance, mood disturbance, and anxiety; R53.81 Other malaise; Y84.8 Other medical procedures as the cause of abnormal reaction of the patient, or of later complication, without mention of misadventure at the time of the procedure
CPT/HCPCS: 31500; 36415; 36416; 36556; 51702; 71045; 80053; 80202; 80307; 81001; 82010; 82805; 83605; 83690; 83735; 83880; 84145; 84484; 85025; 85730; 87040; 87077; 87081; 87086; 87149; 87186; 87449; 87633; 87899; 93005; 93306; 93970; 94002; 94003; 96361; 96365; 96366; 96368; 96375; 99292; J0171; J0692; J1644; J1650; J1815; J1940; J2060; J2185; J2272; J2704; J3010; J3370; J3370-JW; J3480; J3490; J7050